=== PATIENT | male | born 1980 | race Caucasian/White ===

== ENCOUNTER 2017-11-27 17:38 | Inpatient (IN) | payer SELFPAY ==
[2017-11-27] MEDS ORDERED: VECURONIUM 10 MG/VIAL IV ONE (17:39)
[2017-11-27] MEDS ORDERED: WATER FOR INJ,STERILE 10 ML PO ONE (17:39)
[2017-11-27] MEDS ORDERED: ETOMIDATE 20 MG/10 ML VIAL IV ONE (17:39)
[2017-11-27] MEDS ORDERED: SUCCINYLCHOLINE 20 MG/ML (10 ML) IV ONE (17:39)
[2017-11-27] MEDS ORDERED: RSI MEDICATION KIT IV ONE (17:50)
[2017-11-27] MEDS ORDERED: PROPOFOL 1,000 MG/100 ML VIAL IV ONE (18:05)
[2017-11-27] MEDS ORDERED: NA CHLORIDE 0.9% 2,000 ML ONE (18:05)
[2017-11-27] MEDS ORDERED: MIDAZOLAM HCL 2 MG/2 ML INJ ONE ×3 (18:15→21:02)
[2017-11-27 18:23] LABS: Absolute Lymphocytes (CBC) 8.3 K/uL (0.7-4.9); Absolute Monocytes 1.7 K/uL (0.1-1.3); Absolute Neutrophil 6.3 K/uL (1.8-8.0); Basophils % 0.4 % (0-1.3); Eosinophils % 1.3 % (0-4.4); Hematocrit 49.3 % (39.6-49.0); MCV 98.9 fL (80-100); MPV 8.1 fL (7.6-11.3); Monocytes % 10.2 % (3.3-12.3); RBC Red Blood Cell Count 4.98 M/uL (4.33-5.43)
[2017-11-27 18:36] LABS: Barbiturates NEGATIVE; Benzodiazepines NEGATIVE; Cocaine NEGATIVE; Opiates NEGATIVE; Phencyclidine NEGATIVE; THC Cannibis POSITIVE
[2017-11-27 18:37] LABS: Arterial Blood Carboxyhemoglob 7.4 % (0-1.5); Blood Gas Oxyhemoglobin 87.4 % (94-97); Blood O2 Saturation 95.5 % (92-98.5)
[2017-11-27 18:40] LABS: METHAMPHETAM POSITIVE
--- NOTE | 2017-11-27 18:40 | RAD REPORT ---
EXAM DESCRIPTION: RAD - Chest Single View - 11/27/2017 6:34 pm CLINICAL HISTORY: Respiratory failure. COMPARISON: None. FINDINGS: Portable technique limits examination quality. Tip of the ET tube is above the belle. The lungs are grossly clear. The heart is normal in size. No displaced fractures.
[2017-11-27] MEDS ORDERED: FENTANYL CITR 100 MCG/2 ML ONE (19:01)
--- NOTE | 2017-11-27 19:12 | ER ---
Nurse's Notes [facility] Name: Jesu Le Age: 37 yrs Sex: Male : 1980 Arrival Date: 11/27/2017 Time: 17:47 Bed 3 Private MD: Diagnosis: Altered mental status, unspecified Presentation: 11/27 17:35 Presenting complaint: EMS states: Pt requested EMS because he was intoxicated. EMS sv arrives, pt was altered and alert to person. Pt reported drinking a fifth of vodka and smoking synthetic marijuana today. EMS stated that pt attempted to hang himself today but denied homicidal ideation. Pt is combative on arrival. [place] [employer] here at bedside to assist. Transition of care: patient was not received from another setting of care. Onset of symptoms was November 27, 2017. Care prior to arrival: None. 17:35 Method Of Arrival: EMS: [facility] sv 17:35 Acuity: MALIK 1 sv Triage Assessment: 17:37 General: Appears distressed, slender, Behavior is combative, uncooperative, Pt sv screaming and yelling at PD.. Smells of alcohol. Pain: Unable to use pain scale. Patient is disoriented. FLACC scale score is 0 out of 10. EENT: No signs and/or symptoms were reported regarding the EENT system. Neuro: Level of Consciousness is awake, alert, confused, Oriented to person, Moves all extremities. Respiratory: Respiratory effort is even, unlabored, Respiratory pattern is regular, symmetrical. GI: No signs and/or symptoms were reported involving the gastrointestinal system. : No signs and/or symptoms were reported regarding the genitourinary system. Derm: Skin is normal. Musculoskeletal: Range of motion: intact in all extremities. Historical: - Allergies: 19:11 No Known Allergies; sv - Home Meds: 19:11 Unable to obtain [Active]; sv - PMHx: 19:11 Unable to obtain; sv - PSHx: 19:11 None; sv - Immunization history:: Adult Immunizations unknown. - Social history:: Smoking status: unknown Patient uses street drugs, Synthetic marijuana. Screenin:25 Abuse screen: unknown. Nutritional screening: unknown. Tuberculosis screening: unknown. sv Fall Risk No fall in past 12 months (0 pts). Secondary diagnosis (15 points) impaired mobility, IV access (20 points). Ambulatory Aid- None/Bed Rest/Nurse Assist (0 pts). Gait- Impaired (20 pts.). Mental Status- Overestimates/Forgets Limitations (15 pts.). Total Delgado Fall Scale indicates High Risk Score (45 or more points). Fall prevention measures have been instituted. Side Rails Up X 2 Frequent Obs/Assessments Occuring. Assessment: 18:00 General: Behavior is agitated, combative, uncooperative. Pain: Unable to use pain sv scale. FLACC scale score is 0 out of 10. Neuro: Level of Consciousness is confused, aggressive. Cardiovascular: Patient's skin is warm and dry. Respiratory: Respiratory effort is even, labored, Pt bucking the vent Respiratory pattern is regular, symmetrical. Derm: Skin is normal. 18:35 Reassessment: Pt agitated, breathing over the vent. See Propofol increase. Pt remains sv intubated. 18:48 Reassessment: Pt agitated, breathing over the vent. Informed Jamari LOZANO. Pt remains sv intubated. 20:09 Reassessment: Pt sedated, VSS. 40 mcg propofol infusing. Awaiting further orders or bed tl2 assignment. 20:47 Reassessment: report given to Ely CAMPOVERDE for ICU bed 1. tl2 Vital Signs: 17:47 BP 201 / 115; Pulse 106; Resp 16; Pulse Ox 100% on BVM; sv 17:52 BP 161 / 97; Pulse 108; Resp 18; Pulse Ox 100% on ETT ambu; sv 18:00 BP 150 / 97; Pulse 114; Resp 14; Pulse Ox 97% on ETT ambu; sv 18:05 BP 144 / 99; Pulse 112; Resp 14; Temp 99(C); Pulse Ox 100% on ETT ambu; sv 18:15 BP 141 / 93; Pulse 107 MON; Resp 14; Temp 98.8(C); Pulse Ox 98% on 35% FiO2 ETT vent; sv 18:30 BP 121 / 80; Pulse 99; Resp 20; Temp 98.1(C); Pulse Ox 100% on 35% FiO2 ETT vent; sv 18:38 BP 138 / 87; Pulse 118; Resp 23; Temp 97.9; Pulse Ox 88% on 35% FiO2 ETT vent; sv 18:44 BP 112 / 75; Pulse 95 MON; Resp 16; Temp 97.9(C); Pulse Ox 100% on 35% FiO2 ETT vent; sv 18:50 Weight 63.5 kg; sv 19:20 BP 98 / 72; Pulse 87; Resp 17; Pulse Ox 100% on 35% FiO2 ETT vent; tl2 20:07 BP 101 / 66; Pulse 88; Resp 17; Temp 97(C); Pulse Ox 99% on 35% FiO2 ETT vent; tl2 21:27 BP 103 / 66; Pulse 88; Resp 17; Pulse Ox 100% on 35% FiO2 ETT vent; tl2 18:15 Sinus tachycardia sv 18:30 Sinus tachycardia sv 18:38 Sinus tachycardia sv 18:44 Sinus Rhythm sv 18:38 Pt started to wake up. Pt being bagged with ambu bag. O2 sat up to 100%. sv Vitals: 20:07 Cardiac Rhythm Assessment Sinus rhythm. tl2 ED Course: 17:42 Inserted saline lock: 20 gauge in left upper arm, using aseptic technique. ,using sv aseptic technique. done by Stacey CAMPOVERDE. 17:45 Assisted provider with intubation using 7.5 mm ETT via oral route. ET tube secured at sv 23cm at the gums. Set up intubation tray. Intubated by Jamari LOZANO Placement verified by CO2 detector w/ + color change, auscultating bilateral breath sounds, Patient tolerated well. 17:47 Patient arrived in ED. ss 17:50 bus driver/monitor on. Pulse ox on. NIBP on. sv 17:52 Initial lab(s) drawn, by il, sent to lab. Inserted saline lock: 18 gauge in right sv forearm, using aseptic technique. Blood collected. Flushed right forearm with 5 ml normal saline. 18:00 Jamari Guerrero PA is PHCP. jr8 18:00 Nisa Aguilar MD is Attending Physician. jr8 18:00 Patient has correct armband on for positive identification. Side rails up X2. sv 18:00 Arm band placed on right wrist. sv 18:05 El cath inserted, using sterile technique, 16 Fr., by meat grader, balloon inflated, to sv gravity drainage, urine specimen collected. other done by Will granger returned clear yellow urine. Criticore el. 18:06 EKG done, by field service tech. reviewed by Jamari LOZANO. at1 18:25 Hanh Lieberman, RN is Primary Nurse. sv 18:32 X-ray completed. Portable x-ray completed in exam room. Patient tolerated procedure ml well. 18:45 Lab(s) recollected, by ED staff, sent to lab. sv 18:55 CPK Sent. sv 18:55 Acetaminophen Sent. sv 18:55 Basic Metabolic Panel Sent. sv 18:56 CBC with Diff Sent. sv 18:56 ETOH Level Sent. sv 18:56 Hepatic Function Sent. sv 18:56 PT-INR Sent. sv 18:56 Ptt, Activated Sent. sv 18:56 Salicylate Sent. sv 18:56 Urine Drug Screen Sent. sv 18:56 Urine Dipstick--Ancillary (enter results) Sent. sv 18:57 ABG Sent. sv 19:07 Report given to Shelbie CAMPOVERDE. sv 19:11 Triage completed. sv 19:11 Nisa Sharma MD is Hospitalizing Provider. ma2 19:39 X-ray completed. Portable x-ray completed in exam room. Patient tolerated procedure ag1 well. 20:05 Primary Nurse role handed off by Hanh Lieberman, GILLES sv 21:25 Sheblie Le, GILLES is Primary Nurse. tl2 21:27 Patient admitted, IV remains in place. tl2 Restraints: 17:45 Violent/Self Destructive Restraint: Order: obtained. Initiated November 27, 2017 at 17:45 sv Staff present during the Initiation of Restraint: Jamari LOZANO, Dr Aguilar. Family Notification/Education: Unable to provide education: Pt combative and screaming.. Observed actions/behavior: destructive, violent, severely aggressive, harming self/others, confusion/disorientation, difficulty remembering or follow instructions, impaired decision making, repeated attempts to get up from bed/chair without assistance. unable to follow instructions, verbally abusive, Less restrictive alternatives attempted: reoriented to location, verbal de-escalation performed, Alternative interventions: Ineffective. Clinical justification for use: Violent/self destructing behavior impacts therapeutic environment. Poses a serious danger to physical safety of self \T\ others. Monitoring: Mental status: agitated/restless, confused. verbally abusive, Cognition: poor judgement, poor safety awareness, Impulsive, poor attention/concentration, unable to follow commands, short term memory loss, Circulation: Within defined parameters (based on Cardiovascular assessment). Skin integrity: Within defined parameters (based on Integumentary assessment) No injuries due to Restraints noted. Range of Motion: Performed. Restraint status: Side rails up x 4 Started. Soft wrist restraint (Right) Started. Soft wrist restraint (Left) Started. Soft ankle restraint (Right) Started. Soft ankle restraint (Left) Started. Readiness for Discontinue: Criteria not met. Patient still violent/self destructive and Alternative interventions still ineffective. Restraint continued. 18:00 Violent/Self Destructive Restraint: Observed actions/behavior: sv confusion/disorientation, difficulty remembering or follow instructions, impaired decision making, decreased Level of Consciousness (LOC), unable to follow instructions, Less restrictive alternatives attempted: placed near Nurse station, Clinical justification for use: Violent/self destructing behavior impacts therapeutic environment. Poses a serious danger to physical safety of self \T\ others. Monitoring: Mental status: patient asleep, Cognition: Unable to assess. unable to follow commands, Circulation: Within defined parameters (based on Cardiovascular assessment). Skin integrity: Within defined parameters (based on Integumentary assessment) No injuries due to Restraints noted. Restraint status: Side rails up x 4 Continued. Soft wrist restraint (Right) Continued. Soft wrist restraint (Left) Continued. Soft ankle restraint (Right) Discontinued. Soft ankle restraint (Left) Discontinued. 18:15 Violent/Self Destructive Restraint: Monitoring: Mental status: patient asleep, sv Cognition: Unable to assess. unable to follow commands, Circulation: Within defined parameters (based on Cardiovascular assessment). Skin integrity: Within defined parameters (based on Integumentary assessment) No injuries due to Restraints noted. Restraint status: Side rails up x 4 Continued. Soft wrist restraint (Right) Continued. Soft wrist restraint (Left) Continued. 18:30 Violent/Self Destructive Restraint: Monitoring: Mental status: patient asleep, sv Cognition: Unable to assess. unable to follow commands, Circulation: Within defined parameters (based on Cardiovascular assessment). Skin integrity: Within defined parameters (based on Integumentary assessment) No injuries due to Restraints noted. Restraint status: Side rails up x 4 Continued. Soft wrist restraint (Right) Continued. Soft wrist restraint (Left) Continued. 18:45 Violent/Self Destructive Restraint: Monitoring: Mental status: patient asleep, sv Cognition: Unable to assess. unable to follow commands, Circulation: Within defined parameters (based on Cardiovascular assessment). Skin integrity: Within defined parameters (based on Integumentary assessment) No injuries due to Restraints noted. Restraint status: Side rails up x 4 Continued. Soft wrist restraint (Right) Continued. Soft wrist restraint (Left) Continued. Administered Medications: 17:43 Drug: Etomidate 20 mg {Note: given by Stacey RIZO} Route: IVP; Site: left upper arm; sv 18:00 Follow up: Response: No adverse reaction sv 17:44 Drug: Succinylcholine 70 mg {Note: given by Stacey RIZO} Route: IVP; Site: left upper sv arm; 18:00 Follow up: Response: No adverse reaction sv 17:55 Drug: Propofol 20 mcg/kg/min Route: IV; Rate: calculated rate; Site: right forearm; sv 18:35 Follow up: Rate change 30 mcg/kg/min sv 18:45 Follow up: Rate change 40 mcg/kg/min sv 21:26 Follow up: IV Status: Infusion continued upon admission tl2 18:00 Drug: VecuroNIUM 10 mg {Note: given by Jamari BECKETT} Route: IVP; Site: left upper arm; sv 18:15 Follow up: Response: No adverse reaction sv 18:00 Drug: Versed 3 mg Route: IVP; Site: left upper arm; sv 18:56 Follow up: Response: No adverse reaction sv 18:03 Drug: NS 0.9% 1000 ml Route: IV; Rate: 1000 ml; Site: right forearm; sv 18:58 Follow up: Response: No adverse reaction; IV Status: Completed infusion; IV Intake: sv 1000ml 18:03 Drug: NS 0.9% 1000 ml Route: IV; Rate: 1000 ml; Site: left antecubital; sv 18:58 Follow up: Response: No adverse reaction; IV Status: Completed infusion; IV Intake: sv 1000ml 18:48 Drug: fentaNYL (PF) 100 mcg Route: IVP; Site: right forearm; sv 18:56 Follow up: Response: No adverse reaction; Marked relief of symptoms sv 19:01 Drug: NS 0.9% 1000 ml Route: IV; Rate: 125 ml/hr; Site: right forearm; sv 21:26 Follow up: IV Status: Infusion continued upon admission tl2 19:30 Drug: Versed 5 mg Route: IVP; Site: left antecubital; ss 19:40 Follow up: Response: No adverse reaction; Patient is sedated tl2 21:00 Drug: Versed 4 mg Route: IVP; Site: left antecubital; tl2 21:10 Follow up: Response: No adverse reaction; Patient is sedated tl2 Intake: 18:58 IV: 1000ml; Total: 1000ml. sv 18:58 IV: 1000ml; Total: 2000ml. sv Ventilator: 18:00 Fi02: 35%; Rate: 16min; T.V.: 410ml; Mode: CMV; sv Outcome: 19:11 Decision to Hospitalize by Provider. ma2 21:27 Admitted to ICU accompanied by nurse, via stretcher, room 1, with oxygen, on monitor, tl2 with chart, Report called to E[place] : critical :27 Discharge instructions given to pt sedated 21:29 Patient left the ED. tl2 Signatures: Hanh Lieberman, RN RN Carla Crowell Shelby, RN RN Jamari Guerrero PA PA jr8 Stacey bhatia, aviation metalsmith EKG Tat1 Loli Bellamy ag1 Shelbie Le RN RN tl2 Nisa Aguilar MD MD ma2 Corrections: (The following items were deleted from the chart) 18:26 18:26 NS 0.9% 1000 ml IV at 1000 ml in right forearm sv sv 18:27 18:00 VecuroNIUM 10 mg IVP in left upper arm sv sv 19:37 17:35 Acuity: MALIK 2 sv sv
--- NOTE | 2017-11-27 19:12 | EDPHYS ---
Physician Documentation [facility] Name: Jesu Le Age: 37 yrs Sex: Male : 1980 Arrival Date: 11/27/2017 Time: 17:47 Bed 3 Private MD: ED Physician Nisa Aguilar HPI: 11/27 18:04 This 37 yrs old Male presents to ER via Unassigned with complaints of Drug jr8 Abuse. 18:04 The patient presents to the emergency department after a known overdose, a result of jr8 recreational substance abuse. Context: Method: the patient has a confirmed or suspected inhalation. Associated signs and symptoms: Pertinent positives: anxiety. Severity of symptoms: At their worst the symptoms were moderate in the emergency department the symptoms are unchanged. It is unknown whether or not the patient has had similar symptoms in the past. It is unknown whether or not the patient has recently seen a physician. Patient via EMS to ED for drug abuse and agitation. Patient upon arrival was stating that he though he smoked "weed". Was fighting police upon arrival. Patient would not answer questions while in exam room. . Historical: - Allergies: 19:11 No Known Allergies; sv - Home Meds: 19:11 Unable to obtain [Active]; sv - PMHx: 19:11 Unable to obtain; sv - PSHx: 19:11 None; sv - Immunization history:: Adult Immunizations unknown. - Social history:: Smoking status: unknown Patient uses street drugs, Synthetic marijuana. ROS: 18:04 Unable to obtain ROS due to patient being uncooperative. jr8 Exam: 18:04 Head/Face: Normocephalic, atraumatic. Eyes: Pupils equal round and reactive to light, jr8 extra-ocular motions intact. Lids and lashes normal. Conjunctiva and sclera are non-icteric and not injected. Cornea within normal limits. Periorbital areas with no swelling, redness, or edema. ENT: Nares patent. No nasal discharge, no septal abnormalities noted. Tympanic membranes are normal and external auditory canals are clear. Oropharynx with no redness, swelling, or masses, exudates, or evidence of obstruction, uvula midline. Mucous membranes moist. Neck: Trachea midline, no thyromegaly or masses palpated, and no cervical lymphadenopathy. Supple, full range of motion without nuchal rigidity, or vertebral point tenderness. No Meningismus. Respiratory: Lungs have equal breath sounds bilaterally, clear to auscultation and percussion. No rales, rhonchi or wheezes noted. No increased work of breathing, no retractions or nasal flaring. Abdomen/GI: Soft, non-tender, with normal bowel sounds. No distension or tympany. No guarding or rebound. No evidence of tenderness throughout. Back: No spinal tenderness. No costovertebral tenderness. Full range of motion. Skin: Warm, dry with normal turgor. Normal color with no rashes, no lesions, and no evidence of cellulitis. MS/ Extremity: Pulses equal, no cyanosis. Neurovascular intact. Full, normal range of motion. 18:04 Cardiovascular: Rate: tachycardic, Rhythm: regular, Pulses: Pulses are 2+ in right radial artery and left radial artery. Heart sounds: normal, normal S1and S2, no S3 or S4, no murmur, no rub, no gallop, Edema: is not appreciated, JVD: is not appreciated. 18:04 Neuro: Orientation: to person, place, Mentation: inappropriate for stated age, Memory: is normal, Cranial nerves: CN I not tested, CN II- XII are normal as tested, visual vázquez are intact. extraocular movements are intact, Facial palsy and sensory deficits are absent. Speech is clear and appropriate. Tongue strength is normal, Motor: moves all fours, strength is normal, Sensation: no obvious gross deficits, seizure activity, is not displayed by the patient, Abnormal movements: there are no abnormal movements. Vital Signs: 17:47 BP 201 / 115; Pulse 106; Resp 16; Pulse Ox 100% on BVM; sv 17:52 BP 161 / 97; Pulse 108; Resp 18; Pulse Ox 100% on ETT ambu; sv 18:00 BP 150 / 97; Pulse 114; Resp 14; Pulse Ox 97% on ETT ambu; sv 18:05 BP 144 / 99; Pulse 112; Resp 14; Temp 99(C); Pulse Ox 100% on ETT ambu; sv 18:15 BP 141 / 93; Pulse 107 MON; Resp 14; Temp 98.8(C); Pulse Ox 98% on 35% FiO2 ETT vent; sv 18:30 BP 121 / 80; Pulse 99; Resp 20; Temp 98.1(C); Pulse Ox 100% on 35% FiO2 ETT vent; sv 18:38 BP 138 / 87; Pulse 118; Resp 23; Temp 97.9; Pulse Ox 88% on 35% FiO2 ETT vent; sv 18:44 BP 112 / 75; Pulse 95 MON; Resp 16; Temp 97.9(C); Pulse Ox 100% on 35% FiO2 ETT vent; sv 18:50 Weight 63.5 kg; sv 19:20 BP 98 / 72; Pulse 87; Resp 17; Pulse Ox 100% on 35% FiO2 ETT vent; tl2 20:07 BP 101 / 66; Pulse 88; Resp 17; Temp 97(C); Pulse Ox 99% on 35% FiO2 ETT vent; tl2 21:27 BP 103 / 66; Pulse 88; Resp 17; Pulse Ox 100% on 35% FiO2 ETT vent; tl2 18:15 Sinus tachycardia sv 18:30 Sinus tachycardia sv 18:38 Sinus tachycardia sv 18:44 Sinus Rhythm sv 18:38 Pt started to wake up. Pt being bagged with ambu bag. O2 sat up to 100%. sv Ventilator: 18:00 Fi02: 35%; Rate: 16min; T.V.: 410ml; Mode: CMV; sv Procedures: 18:15 Intubation: Ventilated with 100% NRB prior to procedure. O2 saturation prior to jr8 procedure was 100 %. Intubated orally using # 4 Silvia blade with 7.5 mm ETT. was successful on first attempt. Ventilated with Ambu bag. Cricoid pressure applied during procedure. Tube secured with ETT valdez measured 23 cm at teeth. Placement verified by CXR, CO2 detector with (+) color change, auscultating bilateral breath sounds, O2 saturation after procedure was 100 %. Patient tolerated well. MDM: 18:00 Patient medically screened. jr8 18:04 Data reviewed: vital signs, nurses notes, lab test result(s), EKG, radiologic studies, jr8 plain films. Data interpreted: Pulse oximetry: on room air is 100 %. Interpretation: normal. Counseling: I had a detailed discussion with the patient and/or guardian regarding: the historical points, exam findings, and any diagnostic results supporting the discharge/admit diagnosis, lab results, radiology results, the need for further work-up and treatment in the hospital. ED course: Patient extremely combative. Tried multiple times to hit and bite employees. Was fighting both employees and police. For the safety of patient and staff, patient was intubated and sedated. . 18:37 Transition of care: After a detail discussion of the patient's case, care is jr8 transferred to Nisa Aguilar MD. 11/27 18:00 Order name: Acetaminophen [facility] 11/27 18:00 Order name: Basic Metabolic Panel [facility] 11/27 18:00 Order name: CBC with Diff [facility] 11/27 18:00 Order name: ETOH Level [facility] 11/27 18:00 Order name: Hepatic Function [facility] 11/27 18:00 Order name: PT-INR [facility] 11/27 18:00 Order name: Ptt, Activated [facility] 11/27 18:00 Order name: Salicylate [facility] 11/27 18:00 Order name: Urine Drug Screen [facility] 11/27 18:01 Order name: CPK [facility] 11/27 18:16 Order name: ABG [facility] 11/27 18:24 Order name: CBC with Automated Diff; Complete Time: 18:30 EDMN 11/27 18:39 Order name: Urine Dipstick--Ancillary (enter results) 11/27 18:40 Order name: ABG Arterial Blood Gas; Complete Time: 19:06 EDMS 11/27 17:52 Order name: CXR XRAY bd 11/27 18:41 Order name: Urine Drug Screen; Complete Time: 19:06 EDMS 11/27 18:43 Order name: RAD; Complete Time: 19:06 EDMS 11/27 19:03 Order name: Chest Single View XRAY 11/27 19:17 Order name: Basic Metabolic Panel EDMS 11/27 19:24 Order name: Liver (Hepatic) Function EDMS 11/27 19:24 Order name: Creatine Phosphokinase EDMS 11/27 19:24 Order name: Acetaminophen Level EDMS 11/27 19:24 Order name: Alcohol Serum/Plasma EDMS 11/27 19:24 Order name: Salicylates Level EDMS 11/27 19:27 Order name: Protime (+INR) EDMS 11/27 19:27 Order name: PTT, Activated Partial Thromb EDMS 11/27 20:01 Order name: RAD EDMS 11/27 20:19 Order name: Urine Dipstick-Ancillary EDMS 11/27 18:00 Order name: EKG; Complete Time: 18:02 [facility] 11/27 18:00 Order name: EKG - Nurse/Tech; Complete Time: 18:55 [facility] 11/27 18:00 Order name: IV Saline Lock; Complete Time: 18:55 [facility] 11/27 18:00 Order name: Labs collected and sent; Complete Time: 18:55 [facility] 11/27 18:00 Order name: Urine Dipstick-Ancillary (obtain specimen); Complete Time: 18:55 [facility] 11/27 18:01 Order name: Koo; Complete Time: 18:55 [facility] 11/27 18:25 Order name: Labs - recollect needed; Complete Time: 18:56 bd Administered Medications: 17:43 Drug: Etomidate 20 mg {Note: given by Stacey RIZO} Route: IVP; Site: left upper arm; sv 18:00 Follow up: Response: No adverse reaction sv 17:44 Drug: Succinylcholine 70 mg {Note: given by Stacey RIZO} Route: IVP; Site: left upper sv arm; 18:00 Follow up: Response: No adverse reaction sv 17:55 Drug: Propofol 20 mcg/kg/min Route: IV; Rate: calculated rate; Site: right forearm; sv 18:35 Follow up: Rate change 30 mcg/kg/min sv 18:45 Follow up: Rate change 40 mcg/kg/min sv 21:26 Follow up: IV Status: Infusion continued upon admission tl2 18:00 Drug: VecuroNIUM 10 mg {Note: given by Jamari BECKETT} Route: IVP; Site: left upper arm; sv 18:15 Follow up: Response: No adverse reaction sv 18:00 Drug: Versed 3 mg Route: IVP; Site: left upper arm; sv 18:56 Follow up: Response: No adverse reaction sv 18:03 Drug: NS 0.9% 1000 ml Route: IV; Rate: 1000 ml; Site: right forearm; sv 18:58 Follow up: Response: No adverse reaction; IV Status: Completed infusion; IV Intake: sv 1000ml 18:03 Drug: NS 0.9% 1000 ml Route: IV; Rate: 1000 ml; Site: left antecubital; sv 18:58 Follow up: Response: No adverse reaction; IV Status: Completed infusion; IV Intake: sv 1000ml 18:48 Drug: fentaNYL (PF) 100 mcg Route: IVP; Site: right forearm; sv 18:56 Follow up: Response: No adverse reaction; Marked relief of symptoms sv 19:01 Drug: NS 0.9% 1000 ml Route: IV; Rate: 125 ml/hr; Site: right forearm; sv 21:26 Follow up: IV Status: Infusion continued upon admission tl2 19:30 Drug: Versed 5 mg Route: IVP; Site: left antecubital; ss 19:40 Follow up: Response: No adverse reaction; Patient is sedated tl2 21:00 Drug: Versed 4 mg Route: IVP; Site: left antecubital; tl2 21:10 Follow up: Response: No adverse reaction; Patient is sedated tl2 Disposition: 18:42 Co-signature as Attending Physician, Nisa Aguilar MD. ma2 Disposition: 11/27/17 19:11 Hospitalization ordered by Nisa Sharma for Inpatient Admission. Preliminary diagnosis is Altered mental status, unspecified. - Bed requested for Intensive Care Unit. - Status is Inpatient Admission. tl2 - Condition is Guarded. - Problem is new. - Symptoms are unchanged. UTI on Admission? No Signatures: Dispatcher [employer] EDMS Jannet Perla Stephanie RN GILLES Diane Fernandez RN RN ss Roszak, Josh, PA PA jr8 Taqueria Reddy PA PA cp Knox, Taylor, RN RN tl2 Nisa Aguilar MD MD ut2
[2017-11-27 19:13] LABS: Protime INR 0.88
[2017-11-27 19:17] LABS: Bicarbonate 23 mEq/L (21-31); Glucose Level 96 mg/dL (65-120); Potassium 3.5 mEq/L (3.6-5.0); Sodium Level 141 mEq/L (135-145)
[2017-11-27 19:23] LABS: ALT/SGPT 25 IU/L (10-60); AST/SGOT 53 IU/L (10-42); Albumin 4.3 g/dL (3.2-5.5); Alcohol Serum/Plasma 316 mg/dl; Alkaline Phosphatase 93 IU/L (42-121); BUN Blood Urea Nitrogen 7 mg/dL (6-20); Bilirubin Direct 0.1 mg/dL (0-0.2); Bilirubin Total 0.5 mg/dL (0.3-1.2); Creatine Phosphokinase 445 IU/L (22-269); Glomerular Filtration Rate > 90 mL/min (=/>90); Protein, Total 7.2 g/dL (6.0-8.3); Salicylates Level < 4.0 mg/dl (<30)
--- NOTE | 2017-11-27 20:00 | RAD REPORT ---
EXAM DESCRIPTION: RAD - Chest Single View - 11/27/2017 7:41 pm CLINICAL HISTORY: Enteric tube placement COMPARISON: None. FINDINGS: Portable technique limits examination quality. The enteric tube tip is in the stomach.
[2017-11-27] MEDS ORDERED: ONDANSETRON 4 MG/2 ML VIAL IV PRN (20:04)
[2017-11-27] MEDS ORDERED: ACETAMINOPHEN 500 MG TAB PO PRN (20:04)
[2017-11-27] MEDS ORDERED: FENTANYL CITR 100 MCG/2 ML IV PRN (20:06)
[2017-11-27 20:19] LABS: Urine Blood TRACE (NEG); Urine Glucose NEGATIVE (NEG); Urine Protein TRACE (NEG); Urine Specific Gravity <1.005 (1.005-1.030)
[2017-11-27] MEDS: NA CHLORIDE 0.9% 1,000 ML IV SCH (21:39)
[2017-11-27] MEDS: PROPOFOL 1,000 MG/100 ML VIAL IV PRN (21:41)
[2017-11-27] MEDS: LORazepam 2 MG/ML VIAL IV PRN ×2 (21:41→23:47)
--- NOTE | 2017-11-27 22:28 | EKG ---
Test Date: 2017-11-27 Test Time: 17:49:10 Superintendent Service: YOANDY MEASUREMENT RESULTS: Intervals: Rate: 103 IA: 194 QRSD: 94 QT: 344 QTc: 450 [place]: P: 84 IA: 194 QRS: 76 T: 84 INTERPRETIVE STATEMENTS: Sinus tachycardia Right atrial enlargement Borderline ECG Compared to ECG 02/01/2015 13:11:04 Atrial abnormality now present Sinus rhythm no longer present Sinus arrhythmia no longer present Electronically Signed On 11-27-17 22:28:12 CDT by Julio C Alvarado
[2017-11-28] MEDS: PROPOFOL 1,000 MG/100 ML VIAL IV PRN ×2 (02:16→07:17)
[2017-11-28] MEDS: LORazepam 2 MG/ML VIAL IV PRN ×3 (02:34→08:47)
[2017-11-28] MEDS ORDERED: HALOPERIDOL LACT 5 MG/ML INJ IV PRN (03:07)
[2017-11-28] MEDS ORDERED: MIDAZOLAM HCL 2 MG/2 ML INJ IV ONE (03:07)
[2017-11-28] MEDS: FENTANYL CITR 100 MCG/2 ML IV PRN ×3 (03:40→08:46)
[2017-11-28 05:10] LABS: Absolute Lymphocytes (CBC) 3.7 K/uL (0.7-4.9); Absolute Monocytes 1.6 K/uL (0.1-1.3); Absolute Neutrophil 10.5 K/uL (1.8-8.0); Basophils % 0.5 % (0-1.3); Eosinophils % 0.9 % (0-4.4); Hematocrit 42.4 % (39.6-49.0); Lymphocytes % 23.3 % (15.3-44.8); MCH 32.6 pg (27.0-35.0); MPV 7.9 fL (7.6-11.3); Monocytes % 9.7 % (3.3-12.3); RBC Red Blood Cell Count 4.33 M/uL (4.33-5.43)
[2017-11-28 05:38] LABS: Arterial Blood Carboxyhemoglob 1.4 % (0-1.5); Blood Gas Oxyhemoglobin 95.9 % (94-97); Blood O2 Saturation 98.2 % (92-98.5)
--- NOTE | 2017-11-28 05:42 | P.HP ---
Certification for Inpatient Patient admitted to: Inpatient With expected LOS: >2 Midnights Patient will require the following post-hospital care: None Practitioner: I am a practitioner with admitting privileges, knowledge of patient current condition, hospital course, and medical plan of care. Services: Services provided to patient in accordance with Admission requirements found in Title 42 Section 412.3 of the Code of Federal Regulations Patient History Date of Service: 11/27/17 Reason for admission: Acute psychosis/airway protection History of Present Illness: Patient is a 37-year-old gentleman who apparently has been abusing synthetic marijuana. Patient came into the hospital and was deliriums. He was not making any sense and was being very combative. It was deemed that patient was a risk to himself and others. Patient continued to get up to an was being combative and concern was that he was going to hurt himself. Patient was given medication for sedation. Patient required intubation for airway protection as well. I was unable to get any information from the patient. The family is not with him. There is no numbers that I was able to locate at this time. Will ask nursing staff to assist in getting patient's information and will try to contact family this evening. Upon reviewing the medical record patient has been seen in the emergency room and has had a drug screen that has been positive for amphetamines, cocaine, & marijuana. At this time, his urine drug screen is positive for amphetamines and marijuana use. Patient's alcohol level was also significantly elevated. Allergies No Known Drug Allergies Allergy (Unverified 02/01/15 16:07) Unknown No Known Allergies Allergy (Uncoded 11/15/17 16:39) Unknown - Past Medical/Surgical History Has patient received pneumonia vaccine in the past: No Diabetic: No Past Medical History: Unable to obtain Past Surgical History: Unable to obtain - Family History Father Family History: Reviewed- Non-Contributory - Social History Smoking Status: Unknown if ever smoked Alcohol use: Yes CD- Drugs: Yes Review of Systems is unable to be obtained Physical Examination - Vital Signs Temperature: 98.9 F Blood Pressure: 101/63 Pulse: 79 Respirations: 16 Pulse Ox (%): 99 - Physical Exam General: Unresponsive, Other (Intubated and sedated) HEENT: Atraumatic, PERRLA, Mucous membr. moist/pink, Other (Intubated and sedated), EOMI, Sclerae nonicteric Neck: Supple, 2+ carotid pulse no bruit, No LAD, Without JVD or thyroid abnormality Respiratory: Clear to auscultation bilaterally, Normal air movement Cardiovascular: Regular rate/rhythm, Normal S1 S2, No murmurs Gastrointestinal: Normal bowel sounds, Soft and benign, Non-distended, No tenderness Musculoskeletal: No clubbing, No swelling, No tenderness Integumentary: No rashes Neurological: Other (Intubated and sedated but moving all extremities and response to pain in all 4 extremities) Lymphatics: No axilla or inguinal lymphadenopathy - Studies Laboratory Data (last 24 hrs) 11/27/17 18:15: PT 10.4, INR 0.88, APTT 26.5 11/27/17 18:15: Sodium 141, Potassium 3.5 L, BUN 7, Creatinine 0.76, Glucose 96 , Total Bilirubin 0.5, AST 53 H, ALT 25, Alkaline Phosphatase 93 11/27/17 17:50: WBC 16.6 H, Hgb 16.4, Hct 49.3 H, Plt Count 349 Assessment & Plan - Problems (Diagnosis) (1) Drug abuse Current Visit: Yes Status: Acute (2) Acute psychosis Current Visit: Yes Status: Acute (3) Airway compromise Current Visit: Yes Status: Acute - Plan Plan: 1. Continue with gentle ventilation 2. Antipsychotics 3. Abuse of synthetic marijuana 4. IV hydration 5. Monitor electrolytes 6. GI and DVT prophylaxis Discharge Plan: Home Plan to discharge in: Greater than 2 days - Advance Directives Does patient have a Living Will: No Does patient have a Durable POA for Healthcare: No - Code Status/Comfort Care Code Status Assessed: Yes Code Status: Full Code Critical Care: No Time Spent Managing PTS Care (In Minutes): 50
[2017-11-28 06:00] LABS: ALT/SGPT 24 IU/L (10-60); AST/SGOT 49 IU/L (10-42); Albumin 3.8 g/dL (3.2-5.5); Alkaline Phosphatase 73 IU/L (42-121); BUN Blood Urea Nitrogen 8 mg/dL (6-20); Bicarbonate 26 mEq/L (21-31); Bilirubin Total 0.5 mg/dL (0.3-1.2); Glomerular Filtration Rate > 90 mL/min (=/>90); Glucose Level 70 mg/dL (65-120); Magnesium 1.8 mg/dL (1.8-2.5); Phosphorus 1.6 mg/dL (2.5-4.3); Potassium 3.9 mEq/L (3.6-5.0); Protein, Total 6.1 g/dL (6.0-8.3); Sodium Level 144 mEq/L (135-145)
[2017-11-28] MEDS: NA CHLORIDE 0.9% 1,000 ML IV SCH (06:23)
[2017-11-28] MEDS ORDERED: MAGNESIUM SULFATE 1 gm IVPB 1 GM/100 ML BAG IV ONE (07:00)
[2017-11-28] MEDS ORDERED: POTASSIUM PHOS IN 0.9 % NACL 15 MMOL/250 ML BAG IV ONE (07:00)
[2017-11-28] MEDS ORDERED: ENOXAPARIN 40 MG/0.4 ML SQ SCH (09:00)
--- NOTE | 2017-11-28 09:05 | RAD REPORT ---
EXAM DESCRIPTION: Eric Single View11/28/2017 6:46 am CLINICAL HISTORY: Shortness of breath COMPARISON: November 27 FINDINGS: The patient was combative. There left lateral lung base is not included on the film. The lungs appear clear of acute infiltrate. The heart is normal size. An endotracheal tube is been inserted to the level of T3. On this exam it cannot be definitively stat ed whether it is in the trachea or esophagus as the feeding tube overlies the trachea. The endotrache al tube lies 6.5 centimeters above the belle. A feeding tube is present within stomach IMPRESSION: Endotracheal tube has its tip 6.5 centimeters above the belle. It should be advanced a few centimeters with a followup chest film obtained
[2017-11-28] MEDS ORDERED: DIAZEPAM 10 MG/2 ML INJ SYRINGE IV ONE (09:15)
--- NOTE | 2017-11-28 19:27 | P.PN ---
Subjective Date of Service: 11/28/17 Chief Complaint: Acute psychosis/airway protection Subjective: Tolerating diet, Improving, Working w/ PT, Doing well Review of Systems 10-point ROS is otherwise unremarkable Physical Examination - Vital Signs Temperature: 99.6 F Blood Pressure: 114/66 Pulse: 99 Respirations: 21 Pulse Ox (%): 96 - Physical Exam General: Alert, In no apparent distress, Oriented x3 HEENT: Atraumatic, PERRLA, EOMI Neck: Supple, JVD not distended Respiratory: Clear to auscultation bilaterally, Normal air movement Cardiovascular: Regular rate/rhythm, Normal S1 S2 Gastrointestinal: Normal bowel sounds, No tenderness Musculoskeletal: No tenderness Integumentary: No rashes Neurological: Normal speech, Normal tone, Normal affect Lymphatics: No axilla or inguinal lymphadenopathy - Studies Laboratory Data (last 24 hrs) 11/27/17 18:15: PT 10.4, INR 0.88, APTT 26.5 Medications List Reviewed: Yes Assessment & Plan - Problems (Diagnosis) (1) Acute psychosis Current Visit: Yes Status: Acute Plan: Most likely 2.2 to drug abuse. -Now extubated and doing well overall -Resolved psychosis. Calm and cooperative (2) Drug abuse Current Visit: Yes Status: Chronic Plan: Educated extensively on drug abuse and abstaining from using drugs. Discharge Plan: Home Plan to discharge in: 24 Hours - Code Status/Comfort Care Code Status Assessed: Yes Critical Care: No
--- NOTE | 2017-11-28 19:52 | P.SSS ---
Patient History Date of Service: 11/28/17 Reason for admission: Acute psychosis/airway protection History of Present Illness: See HPI Allergies No Known Drug Allergies Allergy (Unverified 02/01/15 16:07) Unknown No Known Allergies Allergy (Uncoded 11/15/17 16:39) Unknown Home Medications: NK [No Home Meds] 11/28/17 - Past Medical/Surgical History Has patient received pneumonia vaccine in the past: No Diabetic: No - Social History Smoking Status: Unknown if ever smoked Alcohol use: Yes CD- Drugs: Yes Review of Systems 10-point ROS is otherwise unremarkable Physical Examination - Vital Signs Temperature: 99.6 F Blood Pressure: 114/66 Pulse: 99 Respirations: 21 Pulse Ox (%): 96 - Physical Exam General: Alert, In no apparent distress HEENT: Atraumatic, PERRLA, Mucous membr. moist/pink, EOMI, Sclerae nonicteric Neck: Supple, 2+ carotid pulse no bruit, No LAD, Without JVD or thyroid abnormality Respiratory: Clear to auscultation bilaterally, Normal air movement Cardiovascular: Regular rate/rhythm, Normal S1 S2 Gastrointestinal: Normal bowel sounds, No tenderness Musculoskeletal: No tenderness Integumentary: No rashes Neurological: Normal gait, Normal speech, Normal strength at 5/5 x4 extr, Normal tone, Normal affect Lymphatics: No axilla or inguinal lymphadenopathy - Diagnosis (Problem(s)) (1) Acute psychosis Current Visit: Yes Status: Acute Plan: Most likely 2.2 to drug abuse. -Now extubated and doing well overall -Resolved psychosis. Calm and cooperative (2) Drug abuse Current Visit: Yes Status: Chronic Plan: Educated extensively on drug abuse and abstaining from using drugs. - Disposition Disposition: ROUTINE DISCHARGE Condition: GOOD Patient Discharge Instructions: Please f/u with PCP in 1 to 2 days post discharge. No new medication. Please refrain from using Drugs once you are discharge from hospital. Diet: Regular Activity: Ad lino
--- NOTE | 2017-12-04 10:39 | P.CNS ---
Date of Consult: 11/28/17 Chief Complaint: Acute psychosis/airway protection History of Present Illness: Patient is 37 years of age admitted significant agitation secondary to synthetic marijuana he had to be intubated due to extreme agitation and was started on a propofol drip the time of my evaluation patient was doing well he was on propofol drip well controlled hemodynamically stable no history of suicidal ideation patient was hypercapnic Allergies No Known Drug Allergies Allergy (Verified 11/28/17 20:40) Unknown No Known Allergies Allergy (Uncoded 11/15/17 16:39) Unknown Home Medications: NK [No Home Meds] 11/28/17 - Past Medical/Surgical History Diabetic: No - Family History Father Family History: Reviewed- Non-Contributory - Social History Smoking Status: Unknown if ever smoked Alcohol use: Yes CD- Drugs: Yes Review of Systems is unable to be obtained Physical Examination Temp Pulse Resp BP Pulse Ox 99.6 F 90 18 104/64 96 11/28/17 19:51 11/28/17 20:00 11/28/17 20:00 11/28/17 20:00 11/28/17 20:00 General: Other (On propofol) HEENT: Atraumatic Respiratory: Clear to auscultation bilaterally Cardiovascular: No edema, Normal S1 S2 - Problems (1) Acute psychosis Status: Acute Plan: Patient is 37 years of age admitted with drug abuse significant agitation due to synthetic marijuana use he had to be intubated hypercapnic currently doing well hemodynamically stable chest clear labs all reviewed oxygenation satisfactory vital signs all stable patient can be extubated blood gases satisfactory white count is mildly elevated
== END 2017-11-28 22:35 | disposition home or self-care (01) | DRG 897 ==
LOC: ER 17:38 → ERHOLD 19:33 → 3RD-ICU 20:53
PROVIDERS: ADMIT Hospitalist; ATTEND Family Medicine
PROC: 5A1935Z Respiratory Ventilation, Less than 24 Consecutive Hours (ICD-10-PCS; principal; 2017-11-27)
PROC: 0BH17EZ Insertion of Endotracheal Airway into Trachea, Via Natural or Artificial Opening (ICD-10-PCS; 2017-11-27)
DX: F15.10 Other stimulant abuse, uncomplicated (principal); F23 Brief psychotic disorder; F12.10 Cannabis abuse, uncomplicated; R45.1 Restlessness and agitation
CPT/HCPCS: 31500; 36415; 51702; 71045; 80048; 80053; 80076; 80307; 80320; 80329; 81003; 82550; 82805; 83735; 84100; 85025; 85610; 85730; 93005; 94002; 94003; 99291; 99292; J0330; J1630; J1650; J2250; J3010; J3475; J7030

== ENCOUNTER 2022-04-05 00:40 | Emergency (ER) | payer SELFPAY ==
--- OUTSIDE RECORDS SUMMARY | 2022-04-05 00:42 | XMS REPORT | Continuity of Care Document ---
:1980 Author Organization [facility] t Address [address] [place] [address] Care Team Providers Name Role Phone Unavailable Unavailable Unavailable Payers Payer Name Policy Type Policy Number Effective Date Expiration Date S ource Problems This patient has no known problems. Allergies, Adverse Reactions, Alerts Allergy Allergy Status Severity Reaction(s) Onset Inactive Treating Comm ents Source Name Type Date Date Clinician No Known DA Active U 2017-0 [facility] Allergie 8-30 Clear s 00:00: [place] 00 [facility] Medications This patient has no known medications. Procedures This patient has no known procedures. Results This patient has no known results.
[2022-04-05] MEDS ORDERED: TETANUS & DIPHTHERIA TOX,ADULT 0.5 ML VIAL ONE (02:06)
--- NOTE | 2022-04-05 02:10 | ER ---
Nurse's Notes [facility] Name: Jesu Le Age: 42 yrs Sex: Male : 1980 Arrival Date: 04/05/2022 Time: 00:48 Bed 7 Private MD: Diagnosis: Contaminated finger laceration; Crush injury of finger Presentation: 04/05 01:01 Chief complaint: Patient states: he smashed his left ring finger about 8 hours ago with bb a hammer and it is painful, swollen and deformed. Coronavirus screen: At this time, the client does not indicate any symptoms associated with coronavirus-19. Ebola Screen: No symptoms or risks identified at this time. Initial Sepsis Screen: Does the patient meet any 2 criteria? No. Patient's initial sepsis screen is negative. Does the patient have a suspected source of infection? No. Patient's initial sepsis screen is negative. Risk Assessment: Do you want to hurt yourself or someone else? Patient reports no desire to harm self or others. Onset of symptoms was April 04, 2022. 01:01 Method Of Arrival: Ambulatory 01:01 Acuity: MALIK 4 bb Triage Assessment: 01:14 Injury Description: Deformity sustained to dorsal aspect of distal phalanx of left ring lp1 finger. Historical: - Allergies: 01:04 No Known Allergies; bb - Home Meds: 01:04 None [Active]; bb - PMHx: 01:04 None; bb - PSHx: 01:04 ear tubes; bb - Immunization history:: Client reports having NOT received the Covid vaccine. - Social history:: Smoking status: Patient/guardian denies using tobacco, Stopped _ months ago 6. Screenin:13 Abuse screen: Denies threats or abuse. Denies injuries from another. Nutritional lp1 screening: No deficits noted. Tuberculosis screening: No symptoms or risk factors identified. Fall Risk None identified. Assessment: 01:10 General: Appears uncomfortable, Behavior is appropriate for age. Pain: Complains of lp1 pain in dorsal aspect of distal phalanx of left ring finger Pain currently is 8 out of 10 on a pain scale. Quality of pain is described as throbbing. Neuro: Level of Consciousness is awake, alert, obeys commands. Cardiovascular: Patient's skin is warm and dry. Respiratory: Respiratory effort is even, unlabored. GI: No signs and/or symptoms were reported involving the gastrointestinal system. : No signs and/or symptoms were reported regarding the genitourinary system. EENT: No signs and/or symptoms were reported regarding the EENT system. Derm: Bruising that is dark purple, on dorsal aspect of distal phalanx of left ring finger. Musculoskeletal: Bony deformity noted of dorsal aspect of distal phalanx of left ring finger Reports pain in dorsal aspect of distal phalanx of left ring finger. Vital Signs: 01:01 BP 108 / 70; Pulse 72; Resp 16 S; Temp 98.2(O); Pulse Ox 99% on R/A; Weight 63.5 kg bb (R); Height 5 ft. 11 in. (180.34 cm) (R); Pain 7/10; 01:01 Body Mass Index 19.53 (63.50 kg, 180.34 cm) bb ED Course: 00:48 Patient arrived in ED. ja2 00:59 Estrella Casey MD is Attending Physician. sp3 01:04 Triage completed. bb 01:04 Arm band placed on Patient placed in an exam room, on a stretcher, on pulse oximetry. bb 01:13 Patient has correct armband on for positive identification. lp1 01:13 Wound care: to abrasion, located on dorsal aspect of distal phalanx of left ring finger lp1 was cleaned with Hibiclens. 01:19 XRAY Finger-Thumb Left: Left 4th (ring) finger In Process Unspecified. EDMS 01:58 Agustina Hillman RN is Primary Nurse. lp1 02:09 Koffi Zavaleta MD is Referral Physician. sp3 02:11 No provider procedures requiring assistance completed. Patient did not have IV access lp1 during this emergency room visit. 02:19 Finger splint to left 4th finger. 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 Lot lp1 #: [id number]. } Route: IM; Site: left deltoid; 02:20 Follow up: Response: No adverse reaction lp1 Medication: 02:19 Vaccine Information Statement (VIS) provided today. Questions and/or concerns lp1 addressed. VIS edition date: April 19, 2021. Outcome: 02:10 Discharge ordered by . sp3 02:19 Discharged to home ambulatory. lp1 02:19 Condition: good 02:19 Discharge instructions given to patient, Instructed on discharge instructions, follow up and referral plans. medication usage, Demonstrated understanding of instructions, follow-up care, medications, Prescriptions given X 1. 02:20 Patient left the ED. lp1 Signatures: Dispatcher [employer] EDAimee Hodges RN RN bb Agustina Hillman RN RN lp1 Estrella Casey MD MD sp3 Ann Marie Huang
--- NOTE | 2022-04-05 02:10 | EDPHYS ---
Physician Documentation [facility] Name: Jesu Le Age: 42 yrs Sex: Male : 1980 Arrival Date: 04/05/2022 Time: 00:48 Bed 7 Private MD: ED Physician Estrella Casey HPI: 04/05 01:55 This 42 yrs old Male presents to ER via Ambulatory with complaints of Finger Injury. sp3 01:55 42-year-old male with no significant past medical history presents with left ring sp3 finger dorsal laceration and crush injury at work with swelling that occurred approximately 10 hours ago. States that he tried to "wait it out" but due to the swelling he presents to the ED.. Historical: - Allergies: 01:04 No Known Allergies; bb - Home Meds: 01:04 None [Active]; bb - PMHx: 01:04 None; bb - PSHx: 01:04 ear tubes; bb - Immunization history:: Client reports having NOT received the Covid vaccine. - Social history:: Smoking status: Patient/guardian denies using tobacco, Stopped _ months ago 6. ROS: 02:03 Constitutional: Negative for fever, chills, and weight loss, Cardiovascular: Negative sp3 for chest pain, palpitations, and edema, Respiratory: Negative for shortness of breath, cough, wheezing, and pleuritic chest pain, Skin: Negative for injury, rash, and discoloration, Neuro: Negative for headache, weakness, numbness, tingling, and seizure. 02:03 All other systems are negative. Exam: 02:03 Constitutional: This is a well developed, well nourished patient who is awake, alert, sp3 and in no acute distress. Skin: Warm, dry with normal turgor. Normal color with no rashes, no lesions, and no evidence of cellulitis. 02:03 Musculoskeletal/extremity: Patient with swelling and widened superficial laceration the dorsum distal tip of the left ring finger. X-ray demonstrates possible hairline fracture middle phalanx and the distal end. No obvious fracture noted.. Vital Signs: 01:01 BP 108 / 70; Pulse 72; Resp 16 S; Temp 98.2(O); Pulse Ox 99% on R/A; Weight 63.5 kg bb (R); Height 5 ft. 11 in. (180.34 cm) (R); Pain 03/23; 01:01 Body Mass Index 19.53 (63.50 kg, 180.34 cm) bb MDM: 01:30 Patient medically screened. sp3 02:06 Data reviewed: vital signs, nurses notes. ED course: Patient states he does not want sp3 anything done except tetanus shot. He is not concerned about the laceration. After speaking to him, I did take the antibiotics and follow-up with hand. Discharged with orthopedics follow-up though I have concerns about patient compliance. Aluminum splint and dressing will also be placed. I have explained the potential complexity and potential complications of his injury including possible loss of finger, hand, functional use of his extremity, infection and patient clearly understands the signs.. 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 Lot lp1 #: [id number]. } Route: IM; Site: left deltoid; 02:20 Follow up: Response: No adverse reaction lp1 Disposition Summary: 04/05/22 02:10 Discharge Ordered Location: Home sp3 Condition: Stable sp3 Diagnosis - Contaminated finger laceration; Crush injury of finger sp3 Followup: sp3 - With: Koffi Zavaleta MD - When: Upon discharge from the Emergency Department - Reason: Recheck today's complaints Discharge Instructions: - Discharge Summary Sheet sp3 - Laceration Care, Adult sp3 Forms: - Medication Reconciliation Form sp3 - Thank You Letter sp3 - Antibiotic Education sp3 - Prescription Opioid Use sp3 Prescriptions: - Bactrim DS 800-160 mg Oral Tablet - take 1 tablet by ORAL route every 12 hours for 10 days; 20 tablet; Refills: 0, sp3 Product Selection Permitted Signatures: Dispatcher [employer] EDAimee Hodges RN RN bb Agustina Hillman RN RN lp1 Estrella Casey MD MD sp3
[2022-04-05 03:17] VITALS: BP 108/70; TEMP 98.2; O2SAT 99
--- NOTE | 2022-04-07 11:57 | RAD REPORT ---
EXAM DESCRIPTION: - Finger-Thumb Left - 04/05/2022 1:17 am CLINICAL HISTORY: SMASH INJURY COMPARISON: None. TECHNIQUE: XR FINGERS 04/05/2022 1:03 AM CDT FINDINGS: There is no fracture. Joint spaces are preserved. There is diffuse soft tissue swelling of the left fourth digit. IMPRESSION: No acute osseous findings. Electronically signed by: Aung Teran MD 04/05/2022 4:36 AM CDT Due to temporary technical issues with the PACS/Fluency reporting system, reports are being signed by the in house radiologists without review as a courtesy to insure prompt reporting. The interpreting radiologist is fully responsible for the content of the report.
== END 2022-04-05 02:20 | disposition home or self-care (01) ==
LOC: ER 00:40
DX: S61.012A Laceration without foreign body of left thumb without damage to nail, initial encounter (principal); S67.02XA Crushing injury of left thumb, initial encounter; Z23 Encounter for immunization
CPT/HCPCS: 90471; 90714; 99284

== ENCOUNTER 2022-11-01 01:24 | Emergency (ER) | payer SELFPAY ==
--- OUTSIDE RECORDS SUMMARY | 2022-11-01 01:25 | XMS REPORT | Continuity of Care Document ---
:1980 Author Organization [facility] t Address [address] [place] [address] Care Team Providers Name Role Phone Unavailable Unavailable Unavailable Payers Payer Name Policy Type Policy Number Effective Date Expiration Date S ource Problems This patient has no known problems. Allergies, Adverse Reactions, Alerts Allergy Allergy Status Severity Reaction(s) Onset Inactive Treating Comm ents Source Name Type Date Date Clinician No Known DA Active U 2017-0 [facility] Allergie 8-30 Clear s 00:00: [place] 00 [facility] Medications This patient has no known medications. Procedures This patient has no known procedures. Results This patient has no known results.
--- NOTE | 2022-11-01 02:09 | EDPHYS ---
Physician Documentation [facility] Name: Jesu Le Age: 42 yrs Sex: Male : 1980 Arrival Date: 11/01/2022 Time: 01:26 Bed Waiting Private MD: ED Physician Hanh Jackson HPI: 11/01 02:04 This 42 yrs old Male presents to ER via Ambulatory with complaints of Toothache. cp 02:04 The patient presents with pain. The problem is located in the right lower molar. Onset: cp The symptoms/episode began/occurred 3 day(s) ago. Duration: The symptoms are continuous, and are steadily getting worse. Associated signs and symptoms: Pertinent positives: pain, Pertinent negatives: dysphagia, fever, inability to eat, vomiting. Severity of symptoms: in the emergency department the symptoms are unchanged, despite home interventions. Historical: - Allergies: 02:02 No Known Allergies; bb - Home Meds: 02:02 None [Active]; bb - PMHx: 02:02 None; bb - PSHx: 02:02 ear tubes; bb - Immunization history:: Client reports having NOT received the Covid vaccine. - Social history:: Smoking status: Patient/guardian denies using tobacco, the patient reports quitting approximately 1 years ago. ROS: 02:07 Constitutional: Negative for body aches, chills, fever, poor PO intake. cp 02:07 ENT: Positive for dental pain, ear pain, Negative for drainage from ear(s), sore throat, difficulty swallowing, difficulty handling secretions. 02:07 Respiratory: Negative for cough, shortness of breath, wheezing. Exam: 02:07 Head/Face: Normocephalic, atraumatic. cp 02:07 Constitutional: The patient appears in no acute distress, alert, awake, non-diaphoretic, non-toxic, well developed, well nourished, uncomfortable. 02:07 Eyes: Periorbital structures: appear normal, Conjunctiva: normal, no exudate, no cp injection, Sclera: no appreciated abnormality, Lids and lashes: appear normal, bilaterally. 02:07 ENT: External ear(s): are unremarkable, Ear canal(s): are normal, clear, TM's: cp dullness, bilaterally, Mouth: Lips: moist, Oral mucosa: pink and intact, moist, Posterior pharynx: Airway: no evidence of obstruction, patent, swelling, is not appreciated, erythema, is not appreciated, exudate, is not appreciated, Dental exam: abscess, is not appreciated, dental caries, that is severe, diffusely, pain, that is moderate, specifically in the lower right third molar (#32), Voice: is normal. 02:07 Chest/axilla: Inspection: normal. 02:07 Cardiovascular: Rate: normal, Rhythm: regular. 02:07 Respiratory: the patient does not display signs of respiratory distress, Respirations: normal, no use of accessory muscles, no retractions, labored breathing, is not present, Breath sounds: are clear throughout, no decreased breath sounds, no stridor, no wheezing. 02:07 Abdomen/GI: Inspection: abdomen appears normal. 02:07 Skin: cellulitis, is not appreciated, no rash present. Vital Signs: 02:00 BP 141 / 94; Pulse 88; Resp 16 S; Temp 98.6(O); Pulse Ox 98% on R/A; Weight 65.77 kg bb (R); Height 5 ft. 11 in. (180.34 cm) (R); Pain 10/10; 02:00 Body Mass Index 20.22 (65.77 kg, 180.34 cm) bb MDM: 01:44 Patient medically screened. cp 02:05 Differential diagnosis: dental caries, gingivitis, dental abscess, aphthous ulcers, cp gingivostomatitis. 02:08 Data reviewed: vital signs, nurses notes. cp 02:08 I considered the following discharge prescriptions or medication management in the emergency department Medications were administered in the Emergency Department. See MAR. Test considered but Not performed: CT: facial bones. Care significantly affected by the following chronic conditions: dental disease. Counseling: I had a detailed discussion with the patient and/or guardian regarding: the historical points, exam findings, and any diagnostic results supporting the discharge/admit diagnosis, the need for outpatient follow up, for definitive care, a dentist, to return to the emergency department if symptoms worsen or persist or if there are any questions or concerns that arise at home. Response to treatment: the patient's symptoms have mildly improved after treatment, and as a result, I will discharge patient. Administered Medications: 02:12 Drug: HYDROcodone-acetaminophen 10 mg-325 mg 1 tabs Route: PO; bb 02:12 Follow up: Response: Medication administered at discharge. bb 02:12 Drug: Ibuprofen 800 mg Route: PO; bb 02:12 Follow up: Response: Medication administered at discharge. bb 02:12 Drug: Augmentin (Amoxicillin-Clavulanate) 875 mg Route: PO; bb 02:12 Follow up: Response: Medication administered at discharge. bb Disposition Summary: 11/01/22 02:08 Discharge Ordered Location: Home cp Problem: new cp Symptoms: have improved cp Condition: Stable cp Diagnosis - Disorder of teeth and supporting structures, unspecified cp Followup: cp - With: Mikey Monet DDS - When: 2 - 3 days - Reason: Recheck today's complaints Discharge Instructions: - Discharge Summary Sheet cp - Dental Pain cp Forms: - Medication Reconciliation Form cp - Thank You Letter cp - Antibiotic Education cp - Prescription Opioid Use cp Prescriptions: - Amoxicillin 875 mg Oral Tablet - take 1 tablet by ORAL route every 12 hours for 10 days; 20 tablet; Refills: 0, cp Product Selection Permitted - Diclofenac Sodium 75 mg Oral Tablet Sustained Release - take 1 tablet by ORAL route 2 times per day; 30 tablet; Refills: 0, Product cp Selection Permitted Addendum: 11/02/2022 06:17 I reviewed the patient's care provided by the Advanced Practice Provider and agree with s d2 the diagnosis and treatment plan. Signatures: Aimee Harvey, RN RN bb Taqueria Reddy PA PA cp Dunlop, Stephanie, MD MD sd2
--- NOTE | 2022-11-01 02:09 | ER ---
Nurse's Notes [facility] Name: Jesu Le Age: 42 yrs Sex: Male : 1980 Arrival Date: 11/01/2022 Time: 01:26 Bed Waiting Private MD: Diagnosis: Disorder of teeth and supporting structures, unspecified Presentation: 11/01 02:00 Chief complaint: Patient states: he is having a bad toothache x 2 days with pain bb radiating into his right jaw from a right lower molar. Coronavirus screen: At this time, the client does not indicate any symptoms associated with coronavirus-19. Ebola Screen: No symptoms or risks identified at this time. Initial Sepsis Screen: Does the patient meet any 2 criteria? No. Patient's initial sepsis screen is negative. Does the patient have a suspected source of infection? No. Patient's initial sepsis screen is negative. Risk Assessment: Do you want to hurt yourself or someone else? Patient reports no desire to harm self or others. Onset of symptoms was October 28, 2022. 02:00 Method Of Arrival: Ambulatory 02:00 Acuity: MALIK 5 Triage Assessment: 02:02 General: Appears in no apparent distress. uncomfortable, Behavior is cooperative, bb crying. Pain: Complains of pain in right jaw Pain currently is 10 out of 10 on a pain scale. EENT: Poor dentition noted. Reports pain in right lower jaw. Neuro: Level of Consciousness is awake, alert, obeys commands, Oriented to person, place, time, situation. Cardiovascular: No deficits noted. Respiratory: Respiratory effort is unlabored. GI: No signs and/or symptoms were reported involving the gastrointestinal system. Derm: Skin is pink, warm \T\ dry. Musculoskeletal: Circulation, motion, and sensation intact. Historical: - Allergies: 02:02 No Known Allergies; bb - Home Meds: 02:02 None [Active]; bb - PMHx: 02:02 None; bb - PSHx: 02:02 ear tubes; bb - Immunization history:: Client reports having NOT received the Covid vaccine. - Social history:: Smoking status: Patient/guardian denies using tobacco, the patient reports quitting approximately 1 years ago. Assessment: 02:14 Reassessment: pt verbalized understanding of and agrees to plan of care discharged from triage. Vital Signs: 02:00 BP 141 / 94; Pulse 88; Resp 16 S; Temp 98.6(O); Pulse Ox 98% on R/A; Weight 65.77 kg bb (R); Height 5 ft. 11 in. (180.34 cm) (R); Pain 10/10; 02:00 Body Mass Index 20.22 (65.77 kg, 180.34 cm) ED Course: 01:35 Taqueria Reddy PA is PHCP. cp 01:35 Hanh Jackson MD is Attending Physician. cp 01:50 Alex Lamb, RN is Primary Nurse. ke1 02:02 Triage completed. bb 02:02 Arm band placed on pt seen by Taqueria LOZANO in triage and discharged from triage. bb 02:08 Mikey Monet DDS is Referral Physician. cp 02:14 Patient has correct armband on for positive identification. bb 02:14 No provider procedures requiring assistance completed. Patient did not have IV access bb during this emergency room visit. Administered Medications: 02:12 Drug: HYDROcodone-acetaminophen 10 mg-325 mg 1 tabs Route: PO; bb 02:12 Follow up: Response: Medication administered at discharge. bb 02:12 Drug: Ibuprofen 800 mg Route: PO; bb 02:12 Follow up: Response: Medication administered at discharge. bb 02:12 Drug: Augmentin (Amoxicillin-Clavulanate) 875 mg Route: PO; bb 02:12 Follow up: Response: Medication administered at discharge. bb Medication: 02:15 VIS not applicable for this client. bb Outcome: 02:08 Discharge ordered by MD. cp 02:14 Discharged to home ambulatory. bb 02:14 Condition: stable 02:14 Discharge instructions given to patient, Instructed on discharge instructions, follow up and referral plans. medication usage, Demonstrated understanding of instructions, follow-up care, medications, Prescriptions given X 2. 02:15 Patient left the ED. bb Signatures: Aimee Harvey, RN RN Taqueria Jacobson PA PA cp Thelma Styles [id number] Alex Lamb, RN RN ke1 Corrections: (The following items were deleted from the chart) 01:55 01:26 Patient arrived in ED. [id number] ke1
[2022-11-01] MEDS ORDERED: AMOX/K CLAV 875 MG TAB ONE (02:13)
[2022-11-01] MEDS ORDERED: IBUPROFEN 400 MG TAB ONE (02:14)
[2022-11-01] MEDS ORDERED: HYDROCODONE/APAP 10/325 TAB ONE (02:14)
[2022-11-01 02:58] VITALS: BP 141/94; TEMP 98.6; O2SAT 98
== END 2022-11-01 02:15 | disposition home or self-care (01) ==
LOC: ER 01:24
DX: K08.89 Other specified disorders of teeth and supporting structures (principal)
CPT/HCPCS: 99283

== ENCOUNTER → 2023-11-01 | Emergency (ER) | payer SELFPAY ==
[~2023-11-01] MED LIST: D5 0.9 NS 1,000 ML IV ONE; FOLIC ACID 5 MG/ML VIAL ONE; LORazepam 2 MG/ML VIAL ONE; MORPHINE 2 MG/ML SYR ONE; MULTIVITAMINS 10 ML VIAL (INJ) IV ONE; NA CHLORIDE 0.9% 1,000 ML ONE; ONDANSETRON 4 MG/2 ML VIAL ONE; THIAMINE 200 MG/2 ML INJ ONE
--- OUTSIDE RECORDS SUMMARY | 2023-11-02 00:04 | XMS REPORT | Continuity of Care Document ---
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 Name Role Phone Unavailable Unavailable Unavailable Payers Payer Name Policy Type Policy Number Effective Date Expirati on Date Source Allergies, Adverse Reactions, Alerts Allergy Name Allergy Type Status Severity Reaction(s) Onset Date Inactive Date Treating Clinician Comments Source No Known Allergie s DA Active U 05-13 00:00: 00 [facility] Encounters Start Date/Time End Date/Time Encounter Type Admission Type Attending Clinicians Care Facility Care Department Encounter ID Source 2023-06-15 08:38:27 2023-06-15 08:38:27 Outpatient [facility] [id number] Wes Castellanos
[2023-11-02 00:38] LABS: Hematocrit 43.9 % (39.6-49.0); Lymphocytes % 53.9 % (15.3-44.8); MPV 6.8 fL (7.6-11.3); Platelets 355 thou/uL (152-406); RBC Red Blood Cell Count 4.88 M/uL (4.33-5.43)
[2023-11-02 00:39] LABS: Protime INR 0.91
[2023-11-02 01:05] LABS: Albumin 4.4 g/dL (3.4-5.0); Bilirubin Direct 0.1 mg/dL (0-0.2); Bilirubin Indirect, Calculated 0.2 mg/dL (0.2-0.8); Bilirubin Total 0.3 mg/dL (0.2-1.0); Magnesium 2.4 mg/dL (1.6-2.4); Potassium 3.5 mEq/L (3.5-5.1); Protein, Total 8.2 g/dL (6.4-8.2); Troponin High Sensitivity 4.1 pg/mL (<58.9)
[2023-11-02 01:23] LABS: Blood Morphology Comment NOT SEEN (NOT SEEN); Platelet Estimate ADEQ
[2023-11-02 02:49] LABS: Barbiturates NEGATIVE (NEGATIVE); Benzodiazepines NEGATIVE (NEGATIVE); Cocaine NEGATIVE (NEGATIVE); METHAMPHETAM POSITIVE (NEGATIVE); Methadone NEGATIVE (NEGATIVE); Opiates NEGATIVE (NEGATIVE); Phencyclidine NEGATIVE (NEGATIVE); THC Cannibis POSITIVE (NEGATIVE)
--- NOTE | 2023-11-02 05:39 | ER ---
Nurse's Notes [facility] Name: Jesu Le Age: 43 yrs Sex: Male : 1980 Arrival Date: 11/01/2023 Time: 23:59 Bed 17 Private MD: Diagnosis: Alcohol use, unspecified with intoxication;Anxiety attack, Methamphetamine overdose Presentation: 11/02 00:40 Chief complaint: Spouse and/or significant other states: We were sitting at the bar vc1 having a few drinks and he started sweating and grabbing his chest stating his chest hurt. Coronavirus screen: Client denies travel out of the [place] in the last 14 days. At this time, the client does not indicate any symptoms associated with coronavirus-19. Ebola Screen: Patient negative for fever greater than or equal to 101.5 degrees Fahrenheit, and additional compatible Ebola Virus Disease symptoms Patient denies exposure to infectious person. Patient denies travel to an Ebola-affected area in the 21 days before illness onset. No symptoms or risks identified at this time. 00:40 Method Of Arrival: Wheelchair vc1 00:51 Initial Sepsis Screen: Does the patient meet any 2 criteria? No. Patient's initial vc1 sepsis screen is negative. Does the patient have a suspected source of infection? No. Patient's initial sepsis screen is negative. Risk Assessment: Do you want to hurt yourself or someone else? Patient reports no desire to harm self or others. Onset of symptoms was November 02, 2023. 00:51 Acuity: MALIK 3 vc1 Triage Assessment: 00:44 General: Appears distressed, uncomfortable, slender, Behavior is cooperative, anxious, vc1 Smells of marijuana. Pain: Complains of pain in anterior aspect of left upper chest and left breast Pain does not radiate. Pain currently is 10 out of 10 on a pain scale. Quality of pain is described as radiating, sharp, stabbing, Pain began suddenly, 30 min ago. Is continuous, Noted to be crying, grimacing, guarding, moaning, resistant to movement. EENT: Eyes are tearing on right inner canthus and left inner canthus. Neuro: Level of Consciousness is awake, constricted limbs, grimacing and crying out in pain. Cardiovascular: Reports chest pain, shortness of breath, Chest pain is described as "worst pain of my life", quality is clutching, sharp, is located in left anterior began 30 minutes prior to arrival episodes are continuous. Respiratory: Reports shortness of breath at rest Airway is patent Respiratory effort is even, unlabored, Respiratory pattern is regular, symmetrical, Breath sounds are clear. GI: No deficits noted. No signs and/or symptoms were reported involving the gastrointestinal system. : No deficits noted. No signs and/or symptoms were reported regarding the genitourinary system. Derm: No deficits noted. No signs and/or symptoms reported regarding the dermatologic system. Musculoskeletal: No deficits noted. No signs and/or symptoms reported regarding the musculoskeletal system. Historical: - Allergies: 00:42 No Known Allergies; vc1 - Home Meds: 00:42 None [Active]; vc1 - PMHx: 00:42 None; vc1 - PSHx: 00:42 ear tubes; vc1 - Immunization history:: Flu vaccine status is unknown. - Social history:: Smoking status: Reported history of juuling and/or vaping. Patient uses street drugs, marijuana. - Family history:: not pertinent. Screenin:43 [facility] ED Fall Risk Assessment (Adult) History of falling in the last 3 months, vc1 including since admission No falls in past 3 months (0 pts) Confusion or Disorientation Yes (5 pts) Intoxicated or Sedated Yes (3 pts) Impaired Gait Yes (1 pt) Mobility Assist Device Used No (0 pt) Altered Elimination No (0 pt) Score/Fall Risk Level 0 - 2 = Low Risk Oriented to surroundings, Maintained a safe environment, Educated pt \\T\\ family on fall prevention, incl call for assistance when getting out of bed. Abuse screen: Denies threats or abuse. Nutritional screening: No deficits noted. Tuberculosis screening: No symptoms or risk factors identified. Assessment: 02:54 Reassessment: No changes from previously documented assessment. Patient and/or family vc1 updated on plan of care and expected duration. Pain level reassessed. General: Appears in no apparent distress. comfortable, Behavior is quiet. 04:12 Reassessment: Patient appears in no apparent distress at this time. Patient and/or pf1 family updated on plan of care and expected duration. Pain level reassessed. Patient pending discharge. 04:45 General: Waiting for patient to wake up more and significant other to arrive to take vc1 him home. Vital Signs: 00:51 BP 130 / 77; Pulse 75; Resp 20; Pulse Ox 100% ; vc1 02:51 BP 104 / 76; Pulse 75; Resp 14; Temp 98; Pulse Ox 100% ; vc1 04:00 BP 102 / 69; Pulse 69; Resp 18; Pulse Ox 100% on R/A; pf1 ED Course: 00:08 Patient arrived in ED. jj6 00:10 Initial lab(s) drawn, by me, sent to lab. Inserted saline lock: 18 gauge in left jb4 antecubital area, using aseptic technique. Blood collected. 00:11 Jason Gayle MD is Attending Physician. sp4 00:30 Patient has correct armband on for positive identification. Bed in low position. Call vc1 light in reach. Side rails up X2. Adult w/ patient. Client placed on continuous cardiac and pulse oximetry monitoring. NIBP monitoring applied. 00:32 XRAY Chest (1 view) In Process Unspecified. EDMS 00:43 Arm band placed on right wrist. vc1 00:52 Triage completed. vc1 01:48 Urine Drug Screen Sent. pm6 05:48 No provider procedures requiring assistance completed. IV discontinued, intact, vc1 bleeding controlled, No redness/swelling at site. Pressure dressing applied. 05:49 Provided Education on: Avoid recreational drugs. vc1 Administered Medications: 00:19 Drug: Ativan IVP 2 mg IVP once Route: IVP; Site: left antecubital; jb4 02:55 Follow up: Response: No adverse reaction; Marked relief of symptoms vc1 00:38 Drug: Banana Bag - (Multivitamin IV 1 amp, NS 0.9% IV 1000 ml, Thiamine IV 100 mg, vc1 foLIC Acid IVPB 1 mg) IV at calculated rate once Route: IV; Rate: calculated rate; Site: left antecubital; 00:48 Follow up: IV Status: Completed infusion; IV Intake: 1000ml vc1 00:39 Drug: morphine IVP or IV 2 mg IVP once over 4 mins Route: IVP; Infused Over: 4 mins; vc1 Site: left antecubital; 02:55 Follow up: Response: No adverse reaction; Marked relief of symptoms vc1 00:39 Drug: Ondansetron IVP 4 mg IVP once; over 2 minutes Route: IVP; Site: left antecubital; vc1 02:56 Follow up: Response: No adverse reaction; Marked relief of symptoms vc1 01:52 Drug: D5-NS IV 1000 ml IV at 250 ml/hr continuous Route: IV; Rate: 250 ml/hr; Site: vc1 left antecubital; 02:50 Follow up: Response: No adverse reaction; Marked relief of symptoms pf1 Medication: 00:52 VIS not applicable for this client. vc1 Intake: 00:48 IV: 1000ml; Total: 1000ml. vc1 Outcome: 05:39 Discharge ordered by . sp4 05:48 Discharged to home ambulatory, with significant other, vc1 05:48 Condition: good 05:48 Discharge instructions given to patient, significant other, Instructed on discharge instructions, follow up and referral plans. Demonstrated understanding of instructions, follow-up care, 05:50 Patient left the ED. vc1 Signatures: Dispatcher [employer] EDMS Filippo Figueredo RN RN jb4 Thelma Styles jj6 Henny Mcdaniel RN RN vc1 Clari Garces RN RN pf1 Jason Gayle MD MD sp4 Teressa Pena pm6
--- NOTE | 2023-11-02 05:39 | EDPHYS ---
Physician Documentation [facility] Name: Jesu Le Age: 43 yrs Sex: Male : 1980 Arrival Date: 11/01/2023 Time: 23:59 Bed 17 Private MD: ED Physician Jason Gayle HPI: 11/02 00:11 This 43 yrs old Male presents to ER via Unassigned with complaints of alcohol sp4 intoxication and chest pain . 03:27 43-year-old male brought from the local bar, we will continue to chest pain and sp4 anxiety. Patient's family stated he was just having a few drinks when he became diaphoretic and grabbed his chest and complained of chest pain. On presentation patient is having acute panic attack with tremors and difficulty speaking. Patient is poorly cooperative. . Historical: - Allergies: 00:42 No Known Allergies; vc1 - Home Meds: 00:42 None [Active]; vc1 - PMHx: 00:42 None; vc1 - PSHx: 00:42 ear tubes; vc1 - Immunization history:: Flu vaccine status is unknown. - Social history:: Smoking status: Reported history of juuling and/or vaping. Patient uses street drugs, marijuana. - Family history:: not pertinent. ROS: 03:27 Constitutional: Positive for chest pain and anxiety sp4 03:27 All other systems are negative, 03:29 Constitutional: Negative for fever, chills, and weight loss, positive for chest sp4 pain, positive for anxiety 03:29 Constitutional: Positive for Exam: 01:54 ECG was reviewed by the Attending Physician. 00:13 Normal EKG at 73 bpm sp4 03:27 Constitutional: This is a well developed, well nourished patient who is awake, alert, sp4 acutely anxious male, poorly cooperative, thin appearing male Head/Face: Normocephalic, atraumatic. Eyes: Pupils equal round and reactive to light, extra-ocular motions intact. Lids and lashes normal. Conjunctiva and sclera are not injected. Cornea within normal limits. Periorbital areas with no swelling, redness, or edema. ENT: Nares patent. No nasal discharge, no septal abnormalities noted. Tympanic membranes are normal and external auditory canals are clear. Oropharynx with no redness, swelling, or masses, exudates, or evidence of obstruction, uvula midline. Mucous membranes moist. Neck: Trachea midline, no thyromegaly or masses palpated, and no cervical lymphadenopathy. Supple, full range of motion without nuchal rigidity, or vertebral point tenderness. Chest/axilla: Normal chest wall appearance and motion. Nontender with no deformity. No lesions are appreciated. Cardiovascular: Regular rate and rhythm with a normal S1 and S2. No gallops, murmurs, or rubs. Normal PMI, no JVD. No pulse deficits. Respiratory: Lungs have equal breath sounds bilaterally, clear to auscultation and percussion. No rales, rhonchi or wheezes noted. No increased work of breathing, no retractions or nasal flaring. Abdomen/GI: Soft, with normal bowel sounds. No distension or tympany. No guarding or rebound. No evidence of tenderness throughout. Back: No spinal tenderness. No costovertebral tenderness. Skin: Warm, dry with normal turgor. Normal color with no rashes, no lesions, and no evidence of cellulitis. MS/ Extremity: Pulses equal, no cyanosis. Neurovascular intact. Full, normal range of motion. Neuro: Awake and alert, GCS 15, oriented to person, place, time, and situation. Cranial nerves II-XII grossly intact. Motor strength 5/5 in all extremities. Sensory grossly intact. Vital Signs: 00:51 BP 130 / 77; Pulse 75; Resp 20; Pulse Ox 100% ; vc1 02:51 BP 104 / 76; Pulse 75; Resp 14; Temp 98; Pulse Ox 100% ; vc1 04:00 BP 102 / 69; Pulse 69; Resp 18; Pulse Ox 100% on R/A; pf1 MDM: 00:13 Patient medically screened. sp4 03:30 Differential Diagnosis altered mental status, sepsis, flu, Intoxication, drug overdose sp4 . Data reviewed: vital signs, nurses notes, old medical records, lab test result(s), EKG, radiologic studies, plain films. Consideration of Admission/Observation Escalation of care including admission/observation considered. ED course: EXAM DESCRIPTION: Chest Single View 11/02/2023 12:54 AM ELECTRONIC SPECIALIST CLINICAL HISTORY: 43 years, Male, CHEST PAIN COMPARISON: None FINDINGS: 1 views of the chest was obtained. Prior films were compared. There is normal lung volume. Mediastinum: The cardiomediastinal silhouette appears normal in size and shape. Lungs: No areas of consolidations or masses are identified. Heart: The heart is normal in size. Aorta: The thoracic aorta demonstrate to be within normal limits. Pulmonary vasculature: The pulmonary vasculature is normal in distribution. Pleura: The costophrenic angles demonstrate to be sharp. Osseous structures: The bony structures demonstrate to be within normal limits. Other: None. IMPRESSION: No acute cardiopulmonary disease is seen. ED course: Patient is positive for methamphetamines, marijuana, alcohol.. We suspect acute panic attacks associated with chest pain is secondary to methamphetamine use. Patient is feeling improved after some Ativan IV. Will advised to discontinue methamphetamine use, will advise to discontinue alcohol and drug use, patient is currently resting and we will reassess patient at 6 AM. . 05:40 ED course: Patient woke up and is feeling improved. Stable for discharge home. We have sp4 advised patient to stay away from recreational drugs and alcohol. . 11/02 00:12 Order name: Basic Metabolic Panel; Complete Time: :45 sp4 11/02 00:12 Order name: CBC with Diff; Complete Time: :45 sp4 11/02 00:12 Order name: LFT's; Complete Time: :45 4 11/02 00:12 Order name: Magnesium; Complete Time: :45 sp4 11/02 00:12 Order name: NT PRO-BNP; Complete Time: :45 sp4 11/02 00:12 Order name: PT-INR; Complete Time: :45 4 11/02 00:12 Order name: Troponin HS; Complete Time: :45 sp4 11/02 00:12 Order name: Urine Drug Screen; Complete Time: 03: sp4 11/02 00:13 Order name: Alcohol Level; Complete Time: :45 sp4 11/02 00:44 Order name: Manual Differential; Complete Time: :45 EDMS 11/02 00:12 Order name: XRAY Chest (1 view) 4 11/02 00:12 Order name: EKG; Complete Time: 00:12 sp4 11/02 00:12 Order name: Cardiac monitoring; Complete Time: 00:19 sp4 11/02 00:12 Order name: EKG - Nurse/Tech; Complete Time: 00:15 sp4 11/02 00:12 Order name: IV Saline Lock; Complete Time: sp4 11/02 00:12 Order name: Labs collected and sent; Complete Time: sp4 11/02 00:12 Order name: O2 Per Protocol; Complete Time: sp4 11/02 00:12 Order name: O2 Sat Monitoring; Complete Time: sp4 EC:54 Rate is 73 beats/min. Rhythm is regular, Normal Sinus Rhythm. QRS [place] is Normal. IN sp4 interval is normal. QRS interval is normal. QT interval is normal. No Q waves. T waves are Normal. No ST changes noted. Clinical impression: Normal ECG. Interpreted by me. Reviewed by me. Administered Medications: 00:19 Drug: Ativan IVP 2 mg IVP once Route: IVP; Site: left antecubital; jb4 02:55 Follow up: Response: No adverse reaction; Marked relief of symptoms vc1 00:38 Drug: Banana Bag - (Multivitamin IV 1 amp, NS 0.9% IV 1000 ml, Thiamine IV 100 mg, vc1 foLIC Acid IVPB 1 mg) IV at calculated rate once Route: IV; Rate: calculated rate; Site: left antecubital; 00:48 Follow up: IV Status: Completed infusion; IV Intake: 1000ml vc1 00:39 Drug: morphine IVP or IV 2 mg IVP once over 4 mins Route: IVP; Infused Over: 4 mins; vc1 Site: left antecubital; 02:55 Follow up: Response: No adverse reaction; Marked relief of symptoms vc1 00:39 Drug: Ondansetron IVP 4 mg IVP once; over 2 minutes Route: IVP; Site: left antecubital; vc1 02:56 Follow up: Response: No adverse reaction; Marked relief of symptoms vc1 01:52 Drug: D5-NS IV 1000 ml IV at 250 ml/hr continuous Route: IV; Rate: 250 ml/hr; Site: vc1 left antecubital; 02:50 Follow up: Response: No adverse reaction; Marked relief of symptoms pf1 Disposition Summary: 11/02/23 05:39 Discharge Ordered Problem: new sp4 Symptoms: have improved sp4 Condition: Stable sp4 Diagnosis - Alcohol use, unspecified with intoxication sp4 - Anxiety attack, Methamphetamine overdose sp4 Followup: sp4 - With: Private Physician - When: 7 - 10 days - Reason: Recheck today's complaints Discharge Instructions: - Discharge Summary Sheet sp4 - Methamphetamines Use Disorder sp4 Forms: - Patient Portal Instructions sp4 Signatures: Dispatcher [employer] Filippo Edmonds RN RN jb4 Henny Mcdaniel RN RN vc1 Jason Gayle MD MD sp4 Clari Garces RN pf1 Corrections: (The following items were deleted from the chart) 03:30 03:27 Constitutional: Negative for fever, chills, and weight loss, sp4 sp4
[2023-11-02 06:10] VITALS: BP 104/76; O2SAT 100
[2023-11-02 06:31] VITALS: TEMP 99.6
--- NOTE | 2023-11-02 10:54 | EKG ---
Test Date: 2023-11-02 Test Time: 00:13:43 Loan Specialist: OEBD MEASUREMENT RESULTS: Intervals: Rate: 73 WI: 152 QRSD: 88 QT: 386 QTc: 425 [place]: P: 82 WI: 152 QRS: 79 T: 76 INTERPRETIVE STATEMENTS: Normal sinus rhythm Normal ECG Compared to ECG 11/27/2017 17:49:10 Sinus tachycardia no longer present Atrial abnormality no longer present Electronically Signed On 11-02-23 10:54:19 RECREATION SUPERVISOR by Hakeem Kumar
--- NOTE | 2023-11-02 13:00 | RAD REPORT ---
EXAM DESCRIPTION: RAD - Chest Single View - 11/02/2023 12:31 am CLINICAL HISTORY: 43 years, Male, CHEST PAIN COMPARISON: None FINDINGS: 1 views of the chest was obtained. Prior films were compared. There is normal lung volum e. Mediastinum: The cardiomediastinal silhouette appears normal in size and shape. Lungs: No areas of consolidations or masses are identified. Heart: The heart is normal in size. Aorta: The thoracic aorta demonstrate to be within normal limits. Pulmonary vasculature: The pulmonary vasculature is normal in distribution. Pleura: The costophrenic angles demonstrate to be sharp. Osseous structures: The bony structures demonstrate to be within normal limits. Other: None. IMPRESSION: No acute cardiopulmonary disease is seen Electronically signed by: Will Lombardi MD 11/02/2023 12:54 AM POWERHOUSE MECHANIC Due to temporary technical issues with the PACS/Fluency reporting system, reports are being signed by the in house radiologist without review as a courtesy to ensure prompt reporting. The interpreting r adiologist is fully responsible for the content of the report.
== END ==
LOC: ER 23:59
DX: F10.929 Alcohol use, unspecified with intoxication, unspecified (principal); F41.0 Panic disorder [episodic paroxysmal anxiety]; T43.621A Poisoning by amphetamines, accidental (unintentional), initial encounter
CPT/HCPCS: 71045; 93005

== ENCOUNTER 2024-01-02 15:35 | Emergency (ER) | payer OTHER, SELFPAY ==
--- OUTSIDE RECORDS SUMMARY | 2024-01-02 15:39 | XMS REPORT | Continuity of Care Document ---
Author Name Unknown Address [address] [facility] [address] [place] [address] [facility] thconnect Address [address] [address] [address] [place] [address] Care Team Providers Care Act English Tutor Name Role Phone Unavailable Unavailable Unavailable Payers Payer Name Policy Type Policy Number Effective Date Expirati on Date Source Allergies, Adverse Reactions, Alerts Allergy Name Allergy Type Status Severity Reaction(s) Onset Date Inactive Date Treating Clinician Comments Source No Known Allergie s DA Active U 05-13 00:00: 00 [facility] Encounters Start Date/Time End Date/Time Encounter Type Admission Type Attending Clinicians Care Facility Care Department Encounter ID Source 2023-06-15 08:38:27 2023-06-15 08:38:27 Outpatient [facility] [id number] Wes Castellanos
[2024-01-02] MEDS ORDERED: NA CHLORIDE 0.9% 2,000 ML ONE (16:02)
[2024-01-02 16:29] LABS: Absolute Basophils 0.1 K/uL (0-0.5); Absolute Eosinophils 0.2 K/uL (0-0.5); Absolute Monocytes 0.9 K/uL (0.1-1.3); Basophils % 0.7 % (0-1.3); Eosinophils % 1.7 % (0-4.4); Hematocrit 41.6 % (39.6-49.0); Hemoglobin 14.1 g/dL (13.6-17.9); Lymphocytes % 33.4 % (15.3-44.8); MCH 30.4 pg (27.0-35.0); MCV 89.5 fL (80-100); MPV 6.9 fL (7.6-11.3); Monocytes % 9.4 % (3.3-12.3); Neutrophils % 54.8 % (41.7-73.7); Nucleated Red Blood Cells % 0.4 % (0-0); Platelets 319 thou/uL (152-406); RBC Red Blood Cell Count 4.65 M/uL (4.33-5.43); Red Cell Distribution Width 12.6 % (12.1-15.2)
[2024-01-02 16:49] LABS: Albumin 4.4 g/dL (3.4-5.0); Albumin/Globulin Ratio 1.3 (1.1-1.8); Anion Gap 8.6 mEq/L (5.0-15.0); Bilirubin Direct 0.1 mg/dL (0-0.2); Bilirubin Indirect, Calculated 0.3 mg/dL (0.2-0.8); Bilirubin Total 0.4 mg/dL (0.2-1.0); Globulin 3.5 g/dL (2.3-3.5); Magnesium 2.2 mg/dL (1.6-2.4); Potassium 3.6 mEq/L (3.5-5.1); Protein, Total 7.9 g/dL (6.4-8.2); Troponin High Sensitivity 3.9 pg/mL (<58.9)
--- NOTE | 2024-01-02 18:07 | ER ---
Nurse's Notes [facility] Name: Jesu Le Age: 43 yrs Sex: Male : 1980 Arrival Date: 01/02/2024 Time: 15:35 Bed 8 Private MD: Diagnosis: Syncope;Dehydration Presentation: 01/01 15:44 Chief complaint: Patient states: I guess I over did it, I'v been cutting grass all day, iw not drinking enough water, all i know is I woke up and there was a bunch of people around me, now my right ear drum feels popped. Coronavirus screen: At this time, the client does not indicate any symptoms associated with coronavirus-19. Ebola Screen: Patient negative for fever greater than or equal to 101.5 degrees Fahrenheit, and additional compatible Ebola Virus Disease symptoms Patient denies exposure to infectious person. Patient denies travel to an Ebola-affected area in the 21 days before illness onset. No symptoms or risks identified at this time. Initial Sepsis Screen: Does the patient meet any 2 criteria? No. Patient's initial sepsis screen is negative. Does the patient have a suspected source of infection?. Risk Assessment: Do you want to hurt yourself or someone else? Patient reports no desire to harm self or others. Onset of symptoms was January 02, 2024. 15:44 Method Of Arrival: Wheelchair iw 15:44 Acuity: MALIK 3 iw Triage Assessment: 15:45 General: Appears in no apparent distress. unkempt, Behavior is calm, cooperative, bp appropriate for age. Pain: Denies pain. Historical: - Allergies: 15:45 No Known Allergies; iw - Home Meds: 15:45 None [Active]; iw - PMHx: 15:45 None; iw - PSHx: 15:45 ear tubes; iw - Immunization history:: Adult Immunizations not up to date. - Infectious Disease History:: Denies. - Social history:: Smoking status: Reported history of juuling and/or vaping. - Family history:: not pertinent. Screenin:18 [facility] ED Fall Risk Assessment (Adult) History of falling in the last 3 months, ph including since admission Yes- physiologic fall (2 pts) Confusion or Disorientation No (0 pts) Intoxicated or Sedated No (0 pts) Impaired Gait No (0 pts) Mobility Assist Device Used No (0 pt) Altered Elimination No (0 pt) Score/Fall Risk Level 0 - 2 = Low Risk Oriented to surroundings, Maintained a safe environment, Hourly rounding (assess needs \\T\\ fall precautionary measures) done. Abuse screen: Denies threats or abuse. Denies injuries from another. Nutritional screening: No deficits noted. Tuberculosis screening: No symptoms or risk factors identified. Assessment: 16:15 Reassessment: IV to RAC, good blood return and flushes easily, pt requested that IV be ph removed, states, " That's uncomfortable, I don't want it. Take it out" IV d/c per pt request. General: Appears in no apparent distress. Behavior is cooperative. Pain: Denies pain. Neuro: Level of Consciousness is awake, alert, obeys commands, Oriented to person, place, time, situation. Cardiovascular: Capillary refill < 3 seconds in bilateral fingers Patient's skin is warm and dry. Derm: Skin is pink, warm \\T\\ dry. 17:03 Reassessment: Patient appears in no apparent distress at this time. Patient is alert, bp oriented x 3, equal unlabored respirations, skin warm/dry/pink. Vital Signs: 15:44 BP 119 / 78; Pulse 88; Resp 16; Temp 98.7; Pulse Ox 100% on R/A; Weight 61.23 kg; iw Height 5 ft. 11 in. ; 17:03 BP 108 / 80; Pulse 62; Resp 16; Pulse Ox 100% ; bp 15:44 Body Mass Index 18.83 (61.23 kg, 180.34 cm) iw ED Course: 15:38 Patient arrived in ED. mr 15:39 Yobany Palma MD is Attending Physician. rt 15:45 Triage completed. iw 15:45 Arm band placed on. iw 15:50 Kwadwo Scales, RN is Primary Nurse. bp 16:15 Initial lab(s) drawn, by me, sent to lab. EKG done, by ED staff, reviewed by Yobany Palma MD. Missed attempt(s): 20 gauge in right forearm. Bleeding controlled, band aid applied, catheter tip intact. Inserted saline lock: 20 gauge in right antecubital area, using aseptic technique. Blood collected. 16:18 Patient has correct armband on for positive identification. Bed in low position. Call ph light in reach. Door closed. Noise minimized. 16:34 Basic Metabolic Panel Sent. bp 16:34 CBC with Diff Sent. bp 16:34 LFT's Sent. bp 16:34 Magnesium Sent. bp 16:34 Troponin HS Sent. bp 16:34 CPK Sent. bp Administered Medications: 16:34 Not Given (Patient Refused): ns 0.9% 2000 ml IV at 2 bolus Per protocol; 1000 mL bolus bp Medication: 16:18 VIS not applicable for this client. ph Outcome: 18:06 Discharge ordered by . rt 18:21 Patient left the ED. em1 Signatures: Thi Schaefer, Reg Reg mr Alejandra Farnsworth, RN Krzysztof Fink em1 Ernestine Latham, GILLES RN Kwadwo Thorne, GILLES RN Yobany Conteh MD MD rt
--- NOTE | 2024-01-02 18:07 | EDPHYS ---
Physician Documentation [facility] Name: Jesu Le Age: 43 yrs Sex: Male : 1980 Arrival Date: 01/02/2024 Time: 15:35 Bed 8 Private MD: ED Physician Yobany Palma HPI: 01/01 17:19 This 43 yrs old Male presents to ER via Wheelchair with complaints of Heat Exposure, rt Confusion. 17:19 Patient presents to the ED with reported syncope. Patient was working outside in the rt heat all day, states that he has not kept up with his fluids, was sweating quite a bit. Did not lose consciousness. Had return of consciousness. Reports mild lightheadedness currently but denies any other acute complaints, symptoms are moderate in severity, no other aggravating or alleviating factors.. Historical: - Allergies: 15:45 No Known Allergies; iw - Home Meds: 15:45 None [Active]; iw - PMHx: 15:45 None; iw - PSHx: 15:45 ear tubes; iw - Immunization history:: Adult Immunizations not up to date. - Infectious Disease History:: Denies. - Social history:: Smoking status: Reported history of juuling and/or vaping. - Family history:: not pertinent. ROS: 17:19 Constitutional: Negative for fever, chills, and weight loss, Cardiovascular: Negative rt for chest pain, palpitations, and edema, Respiratory: Negative for shortness of breath, cough, wheezing, and pleuritic chest pain, Abdomen/GI: Negative for abdominal pain, nausea, vomiting, diarrhea, and constipation, Skin: Negative for injury, rash, and discoloration, Psych: Negative for depression, anxiety, suicide ideation, homicidal ideation, and hallucinations, 17:19 Neuro: Positive for syncope, Negative for altered mental status, Exam: 17:19 Constitutional: This is a well developed, well nourished patient who is awake, alert, rt and in no acute distress. Head/Face: Normocephalic, atraumatic. Chest/axilla: Normal chest wall appearance and motion. Nontender with no deformity. No lesions are appreciated. Cardiovascular: Regular rate and rhythm with a normal S1 and S2. No gallops, murmurs, or rubs. Normal PMI, no JVD. No pulse deficits. Respiratory: Lungs have equal breath sounds bilaterally, clear to auscultation and percussion. No rales, rhonchi or wheezes noted. No increased work of breathing, no retractions or nasal flaring. Abdomen/GI: Soft, non-tender, with normal bowel sounds. No distension or tympany. No guarding or rebound. No evidence of tenderness throughout. Skin: Warm, dry with normal turgor. Normal color with no rashes, no lesions, and no evidence of cellulitis. MS/ Extremity: Pulses equal, no cyanosis. Neurovascular intact. Full, normal range of motion. Neuro: Awake and alert, GCS 15, oriented to person, place, time, and situation. Cranial nerves II-XII grossly intact. Motor strength 5/5 in all extremities. Sensory grossly intact. Cerebellar exam normal. Normal gait. 17:19 ENT: Dry mucous membranes. 17:19 ECG was reviewed by the Attending Physician. Vital Signs: 15:44 BP 119 / 78; Pulse 88; Resp 16; Temp 98.7; Pulse Ox 100% on R/A; Weight 61.23 kg; iw Height 5 ft. 11 in. ; 17:03 BP 108 / 80; Pulse 62; Resp 16; Pulse Ox 100% ; bp 15:44 Body Mass Index 18.83 (61.23 kg, 180.34 cm) iw MDM: 15:52 Patient medically screened. rt 18:33 Differential Diagnosis Dehydration, syncope, rhabdomyolysis, acute renal failure. Data rt reviewed: vital signs, nurses notes, lab test result(s), EKG. Consideration of Admission/Observation Escalation of care including admission/observation considered. I considered the following discharge prescriptions or medication management in the emergency department Medications were administered in the Emergency Department. See MAR. Test considered but Not performed: CT: No signs of head trauma, CT scan of the head not indicated. Counseling: I had a detailed discussion with the patient and/or guardian regarding the historical points, exam findings, and any diagnostic results supporting the discharge/admit diagnosis, lab results, the need for outpatient follow up, to return to the emergency department if symptoms worsen or persist or if there are any questions or concerns that arise at home. Response to treatment: the patient's symptoms have markedly improved after treatment. 01/01 15:58 Order name: Basic Metabolic Panel; Complete Time: 18:00 rt 01/01 15:58 Order name: CBC with Diff; Complete Time: 18:00 rt 01/01 15:58 Order name: LFT's; Complete Time: 18:00 rt 01/01 15:58 Order name: Magnesium; Complete Time: 18:00 rt 01/01 15:58 Order name: Troponin HS; Complete Time: 18:00 rt 01/01 15:58 Order name: CPK; Complete Time: 18:00 rt 01/01 15:58 Order name: EKG; Complete Time: 15:58 rt 01/01 15:58 Order name: Cardiac monitoring; Complete Time: 16:15 rt 01/01 15:58 Order name: EKG - Nurse/Tech; Complete Time: 16:15 rt 01/01 15:58 Order name: Labs collected and sent; Complete Time: 16:15 rt 01/01 15:58 Order name: O2 Per Protocol; Complete Time: 15:59 rt 01/01 15:58 Order name: O2 Sat Monitoring; Complete Time: 15:59 rt EC:19 Rate is 66 beats/min. Rhythm is regular, Normal Sinus Rhythm with No ectopy. QRS [place] rt is Normal. NC interval is normal. QT interval is normal. No Q waves. T waves are Normal. No ST changes noted. Interpreted by me. Administered Medications: 16:34 Not Given (Patient Refused): ns 0.9% 2000 ml IV at 2 bolus Per protocol; 1000 mL bolus bp Disposition Summary: 01/02/24 18:06 Discharge Ordered Notes: Location: Home rt Problem: new rt Symptoms: have improved rt Condition: Stable rt Diagnosis - Syncope rt - Dehydration rt Followup: rt - With: Private Physician - When: 2 - 3 days - Reason: Discharge Instructions: - Discharge Summary Sheet rt - Dehydration, Adult rt - Syncope rt Forms: - Medication Reconciliation Form rt - Thank You Letter rt - Antibiotic Education rt - Prescription Opioid Use rt - Patient Portal Instructions rt - Leadership Thank You Letter rt Signatures: Dispatcher [employer] Alejandra Harris, GILLES RN iw Yobany Palma MD MD rt Kwadwo Scales RN bp Corrections: (The following items were deleted from the chart) 16:34 15:58 IV Saline Lock ordered. rt bp
[2024-01-02 18:31] VITALS: BP 108/80; TEMP 98.7; O2SAT 100
== END 2024-01-02 18:21 | disposition home or self-care (01) ==
LOC: ER 15:35
DX: R55 Syncope and collapse (principal); E86.0 Dehydration
CPT/HCPCS: 36415; 80048; 80076; 82550; 83735; 84484; 85025; 93005; 99283; J7030

== ENCOUNTER 2024-05-11 17:46 | Emergency (ER) | payer OTHER ==
--- OUTSIDE RECORDS SUMMARY | 2024-05-11 17:48 | XMS REPORT | Continuity of Care Document ---
Author Name Unknown Address [address] [facility] [address] [place] [address] [facility] thconnect Address [address] [address] [address] [place] [address] Care Team Providers Care Mercerizing Range Controller Name Role Phone Unavailable Unavailable Unavailable Payers Payer Name Policy Type Policy Number Effective Date Expirati on Date Source Allergies, Adverse Reactions, Alerts Allergy Name Allergy Type Status Severity Reaction(s) Onset Date Inactive Date Treating Clinician Comments Source No Known Allergie s DA Active U 05-13 00:00: 00 [facility] Encounters Start Date/Time End Date/Time Encounter Type Admission Type Attending Clinicians Care Facility Care Department Encounter ID Source 2023-06-15 08:38:27 2023-06-15 08:38:27 Outpatient [facility] [id number] Wes Castellanos
--- NOTE | 2024-05-11 19:39 | RAD REPORT ---
EXAM DESCRIPTION: RAD - Ankle Right 3 View - 05/11/2024 7:19 pm CLINICAL HISTORY: Pain;Swelling COMPARISON: No comparisons FINDINGS: Moderate soft tissue is noted laterally. No fracture and dislocation.
--- NOTE | 2024-05-11 19:53 | ER ---
Nurse's Notes [facility] Name: Jesu Le Age: 44 yrs Sex: Male : 1980 Arrival Date: 05/11/2024 Time: 17:46 Bed 11 Private MD: Diagnosis: Sprain of ankle Presentation: 05/11 18:10 Coronavirus screen: Client denies travel out of the [place] in the last 14 days. At this ll1 time, the client does not indicate any symptoms associated with coronavirus-19. Ebola Screen: Patient denies travel to an Ebola-affected area in the 21 days before illness onset. Initial Sepsis Screen: Does the patient meet any 2 criteria? No. Patient's initial sepsis screen is negative. Does the patient have a suspected source of infection? No. Patient's initial sepsis screen is negative. Risk Assessment: Do you want to hurt yourself or someone else? Patient reports no desire to harm self or others. Onset of symptoms was May 11, 2024. 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 Triage Assessment: 18:13 General: Appears uncomfortable, Behavior is calm, cooperative, appropriate for age. ll1 Pain: Complains of pain in R ankle Quality of pain is described as aching. Musculoskeletal: Circulation, motion, and sensation intact. Capillary refill < 3 seconds, Reports pain in right leg. Injury Description: Bruise. Historical: - Allergies: 17:59 No Known Drug Allergies; ll1 - PMHx: 18:09 None; ll1 - PSHx: 17:59 ear tubes; ll1 - Immunization history:: Adult Immunizations up to date. - Infectious Disease History:: Denies. - Social history:: Smoking status: Reported history of juuling and/or vaping. - Family history:: not pertinent. - Hospitalizations: : No recent hospitalization is reported. Screenin:15 [facility] ED Fall Risk Assessment (Adult) History of falling in the last 3 months, jb4 including since admission No falls in past 3 months (0 pts) Confusion or Disorientation No (0 pts) Intoxicated or Sedated No (0 pts) Impaired Gait No (0 pts) Mobility Assist Device Used No (0 pt) Altered Elimination No (0 pt) Score/Fall Risk Level 0 - 2 = Low Risk Oriented to surroundings, Maintained a safe environment. Abuse screen: Denies threats or abuse. Nutritional screening: No deficits noted. Tuberculosis screening: No symptoms or risk factors identified. Assessment: 20:15 Reassessment: Patient appears in no apparent distress at this time. Patient and/or jb4 family updated on plan of care and expected duration. Pain level reassessed. Patient is alert, oriented x 3, equal unlabored respirations, skin warm/dry/pink. Vital Signs: 18:10 BP 116 / 78; Pulse 78; Resp 17; Temp 97.4; Pulse Ox 100% ; Weight 60.33 kg; Height 5 ll1 ft. 11 in. ; Pain 8/10; 18:10 Body Mass Index 18.55 (60.33 kg, 180.34 cm) ll1 18:10 Pain Scale: Adult ll1 ED Course: 17:48 Patient arrived in ED. mr 17:54 Ulisses Matthews MD is Attending Physician. rn 17:59 Arm band placed on. ll1 18:10 Triage completed. ll1 19:21 XRAY Ankle RIGHT 3 view In Process Unspecified. EDMS 20:15 Patient has correct armband on for positive identification. Bed in low position. Call jb4 light in reach. Side rails up X 1. Provided Education on: discharge instructions.. 20:15 No provider procedures requiring assistance completed. Patient did not have IV access jb4 during this emergency room visit. Administered Medications: 20:15 Drug: [place] PO 10 mg-325 mg 1 tabs PO once Route: PO; jb4 20:15 Follow up: Response: Medication administered at discharge. jb4 Medication: 20:15 VIS not applicable for this client. jb4 Outcome: 19:53 Discharge ordered by . rn 20:15 Discharged to home ambulatory, jb4 20:15 Condition: stable 20:15 Discharge instructions given to patient, Instructed on discharge instructions, follow up and referral plans. medication usage, Demonstrated understanding of instructions, follow-up care, medications, Prescriptions given X 1, 20:17 Patient left the ED. jb4 Signatures: Dispatcher [employer] EDPA Thi Schaefer, Reg Reg mr Ulisses Matthews MD MD rn Bryson, James, RN RN jb4 Gasper Mary RN RN ll1 Corrections: (The following items were deleted from the chart) 18:13 18:10 BP 116 / 78; Pulse 78bpm; Resp 17bpm; Pulse Ox 100%; Temp 97.4F; 62.14 kg; Height ll1 5 ft. 11 in.; BMI: 19.1; Pain 8/10, Adult; ll1
--- NOTE | 2024-05-11 19:53 | EDPHYS ---
Physician Documentation [facility] Name: Jesu Le Age: 44 yrs Sex: Male : 1980 Arrival Date: 05/11/2024 Time: 17:46 Bed 11 Private MD: ED Physician Ulisses Matthews HPI: 05/11 18:19 This 44 yrs old Male presents to ER via Wheelchair with complaints of Ankle Injury. rn 18:19 The patient presents with decreased range of motion, an injury, pain. The complaints rn affect the right ankle. Onset: The symptoms/episode began/occurred just prior to arrival. Severity of symptoms: At their worst the symptoms were moderate. The patient has not experienced similar symptoms in the past. Patient reports stepped in a hole, inversion injury to right ankle. Lateral malleolus swelling and pain. No open wounds.. Historical: - Allergies: 17:59 No Known Drug Allergies; ll1 - PMHx: 18:09 None; ll1 - PSHx: 17:59 ear tubes; ll1 - Immunization history:: Adult Immunizations up to date. - Infectious Disease History:: Denies. - Social history:: Smoking status: Reported history of juuling and/or vaping. - Family history:: not pertinent. - Hospitalizations: : No recent hospitalization is reported. ROS: 18:19 MS/Extremity: Positive for right ankle injury and deformity. No open wounds. rn Exam: 18:19 Constitutional: This is a well developed, well nourished patient who is awake, alert, rn appears in pain MS/ Extremity: Pulses equal, no cyanosis. Neurovascular intact. Lateral malleolus swelling with tenderness. No open wound. No discoloration. No proximal tib-fib or knee pain or tenderness Vital Signs: 18:10 BP 116 / 78; Pulse 78; Resp 17; Temp 97.4; Pulse Ox 100% ; Weight 60.33 kg; Height 5 ll1 ft. 11 in. ; Pain 8/10; 18:10 Body Mass Index 18.55 (60.33 kg, 180.34 cm) ll1 18:10 Pain Scale: Adult ll1 MDM: 17:54 Patient medically screened. rn 19:51 Differential diagnosis: fracture, sprain. Data reviewed: vital signs, nurses notes, rn radiologic studies, plain films, and as a result, I will discharge patient. Counseling: I had a detailed discussion with the patient and/or guardian regarding the historical points, exam findings, and any diagnostic results supporting the discharge/admit diagnosis, radiology results, the need for outpatient follow up, to return to the emergency department if symptoms worsen or persist or if there are any questions or concerns that arise at home. Special discussion: I discussed with the patient/guardian in detail that at this point there is no indication for admission to the hospital. It is understood, however, that if the symptoms persist or worsen the patient needs to return immediately for re-evaluation. Based on the history and exam findings, there is no indication for further emergent testing or inpatient evaluation. I discussed with the patient/guardian the need to see the orthopedic surgeon for further evaluation of the symptoms. 05/11 18:19 Order name: XRAY Ankle RIGHT 3 view rn 05/11 19:51 Order name: Walking boot; Complete Time: 20:15 rn Administered Medications: 20:15 Drug: [place] PO 10 mg-325 mg 1 tabs PO once Route: PO; [facility] 20:15 Follow up: Response: Medication administered at discharge. jb4 Disposition Summary: 05/11/24 19:53 Discharge Ordered Notes: Location: Home rn Problem: new rn Symptoms: have improved rn Condition: Stable rn Diagnosis - Sprain of ankle rn Followup: rn - With: Private Physician - When: As needed - Reason: Recheck today's complaints, Re-evaluation by your physician Discharge Instructions: - Discharge Summary Sheet rn - Ankle Sprain rn Forms: - Medication Reconciliation Form rn - Antibiotic lathe turner - Prescription Opioid Use rn - Patient Portal Instructions rn - Leadership Thank You Letter rn Prescriptions: - Tramadol 50 mg Oral Tablet - take 1 tablet ORAL route every 8 hours as needed; 12 tablet; Refills: 0, rn Product Selection Permitted Signatures: Dispatcher [employer] EDMS Ulisses Matthews MD MD rn Bryson, James RN RN jb4 Gasper Mary RN RN ll1 Corrections: (The following items were deleted from the chart) 18:20 18:20 Ankle Right 3 View+[email or web address] ordered. EDMS EDMS
[2024-05-11] MEDS ORDERED: HYDROCODONE/APAP 10/325 TAB ONE (20:03)
[2024-05-11 20:39] VITALS: BP 116/78; TEMP 97.4; O2SAT 100
== END 2024-05-11 20:17 | disposition home or self-care (01) ==
LOC: ER 17:46
DX: S93.401A Sprain of unspecified ligament of right ankle, initial encounter (principal)

== ENCOUNTER 2024-06-15 01:13 | Emergency (ER) | payer OTHER ==
--- OUTSIDE RECORDS SUMMARY | 2024-06-15 01:16 | XMS REPORT | Continuity of Care Document ---
Author Name Unknown Address [address] [facility] [address] [place] [address] [facility] thconnect Address [address] [facility] [address] [place] [address] Care Team Providers Care Senior Java Developer Name Role Phone Unavailable Unavailable Unavailable Payers Payer Name Policy Type Policy Number Effective Date Expirati on Date Source Allergies, Adverse Reactions, Alerts Allergy Name Allergy Type Status Severity Reaction(s) Onset Date Inactive Date Treating Clinician Comments Source No Known Allergie s DA Active U 05-13 00:00: 00 [facility] Encounters Start Date/Time End Date/Time Encounter Type Admission Type Attending Clinicians Care Facility Care Department Encounter ID Source 2023-06-15 08:38:27 2023-06-15 08:38:27 Outpatient [facility] [id number] Wes Castellanos
[2024-06-15] MEDS ORDERED: NA CHLORIDE 0.9% 1,000 ML ONE (01:35)
[2024-06-15] MEDS ORDERED: ONDANSETRON 4 MG/2 ML VIAL ONE (01:51)
[2024-06-15 02:23] LABS: Absolute Eosinophils 0.1 K/uL (0-0.5); Absolute Lymphocytes (CBC) 1.6 K/uL (0.7-4.9); Absolute Monocytes 0.7 K/uL (0.1-1.3); Absolute Neutrophil 6.1 K/uL (1.8-8.0); Basophils % 0.5 % (0-1.3); Eosinophils % 0.8 % (0-4.4); Hemoglobin 13.4 g/dL (13.6-17.9); Lymphocytes % 18.9 % (15.3-44.8); MCH 30.8 pg (27.0-35.0); MCHC 34.4 g/dL (32.0-36.0); MCV 89.4 fL (80-100); MPV 7.1 fL (7.6-11.3); Monocytes % 8.1 % (3.3-12.3); Neutrophils % 71.7 % (41.7-73.7); Platelets 296 thou/uL (152-406); RBC Red Blood Cell Count 4.36 M/uL (4.33-5.43); Red Cell Distribution Width 12.4 % (12.1-15.2)
[2024-06-15 02:32] LABS: Albumin/Globulin Ratio 1.1 (1.1-1.8); Anion Gap 6.2 mEq/L (5.0-15.0); Bilirubin Total 0.4 mg/dL (0.2-1.0); Globulin 3.6 g/dL (2.3-3.5); Potassium 4.2 mEq/L (3.5-5.1); Protein, Total 7.6 g/dL (6.4-8.2)
--- NOTE | 2024-06-15 02:58 | ER ---
Nurse's Notes [facility] Name: Jesu Le Age: 44 yrs Sex: Male : 1980 Arrival Date: 06/15/2024 Time: 01:13 Bed 2 Private MD: Diagnosis: Drug use, mushroom use, nausea Presentation: 06/15 01:15 Chief complaint: Patient states: ate unknown amount of shrooms 4hr CANS VACUUM TESTER. Nausea, lg3 vomiting and weakness. Coronavirus screen: Client denies travel out of the [place] in the last 14 days. At this time, the client does not indicate any symptoms associated with coronavirus-19. Ebola Screen: No symptoms or risks identified at this time. Initial Sepsis Screen: Does the patient meet any 2 criteria? No. Patient's initial sepsis screen is negative. Does the patient have a suspected source of infection? No. Patient's initial sepsis screen is negative. Risk Assessment: Do you want to hurt yourself or someone else? Patient reports no desire to harm self or others. Onset of symptoms was June 15, 2024. 01:15 Method Of Arrival: EMS: [facility] lg3 01:15 Acuity: MALIK 3 lg3 Triage Assessment: 01:17 General: Appears in no apparent distress. comfortable, Behavior is calm, cooperative. lg3 Pain: Denies pain. EENT: No deficits noted. No signs and/or symptoms were reported regarding the EENT system. Neuro: No deficits noted. [place] Agitation-Sedation Scale (RASS): -1 Drowsy Level of Consciousness is awake, alert, obeys commands, Oriented to person, place, time, situation. Cardiovascular: No deficits noted. Denies chest pain, shortness of breath, Capillary refill < 3 seconds Clubbing of nail beds is absent JVD is absent Patient's skin is warm and dry. Respiratory: No deficits noted. Airway is patent Respiratory effort is even, unlabored, Respiratory pattern is regular, symmetrical. GI: No deficits noted. Reports nausea, vomiting. : No deficits noted. No signs and/or symptoms were reported regarding the genitourinary system. Derm: No deficits noted. No signs and/or symptoms reported regarding the dermatologic system. Skin is intact, is healthy with good turgor, Skin is dry, Skin is normal, Skin temperature is warm. Musculoskeletal: No deficits noted. Circulation, motion, and sensation intact. Range of motion: intact in all extremities. Historical: - Allergies: :17 No Known Allergies; lg3 - Home Meds: :17 None [Active]; lg3 - PMHx: :17 None; lg3 - PSHx: :17 ear tubes; lg3 - Immunization history:: Adult Immunizations up to date. - Infectious Disease History:: Denies. - Social history:: Smoking status: Patient denies any tobacco usage or history of. Patient uses street drugs, psilocybin, Patient/guardian denies using alcohol. Screenin:47 [facility] ED Fall Risk Assessment (Adult) History of falling in the last 3 months, bm8 including since admission No falls in past 3 months (0 pts) Confusion or Disorientation Yes (5 pts) Intoxicated or Sedated Yes (3 pts) Impaired Gait Yes (1 pt) Mobility Assist Device Used No (0 pt) Altered Elimination No (0 pt) Score/Fall Risk Level 3 or more points = High Risk Oriented to surroundings, Maintained a safe environment, Educated pt \T\ family on fall prevention, incl call for assistance when getting out of bed, Assessed \T\ reinforced patient's understanding of fall precautions, Hourly rounding (assess needs \T\ fall precautionary measures) done, Used ambulatory aids as needed (educated on \T\ assisted with), Used gait belt as appropriate Implemented a Fall Risk Plan of Care. Abuse screen: Denies threats or abuse. Nutritional screening: No deficits noted. Tuberculosis screening: No symptoms or risk factors identified. Assessment: :47 Reassessment: Patient appears in no apparent distress at this time. Patient and/or bm8 family updated on plan of care and expected duration. Pain level reassessed. Patient is alert, oriented x 3, equal unlabored respirations, skin warm/dry/pink. General: Appears in no apparent distress. comfortable, Behavior is calm, cooperative, appropriate for age. Pain: Complains of pain in abdomen Pain currently is 5 out of 10 on a pain scale. Neuro: Level of Consciousness is awake, alert, obeys commands, Oriented to person, place, time, situation, Appropriate for age. Cardiovascular: Denies chest pain, Capillary refill < 3 seconds Patient's skin is warm and dry. Respiratory: Airway is patent Trachea midline Respiratory effort is even, unlabored, Respiratory pattern is regular, symmetrical, Breath sounds are clear bilaterally. GI: Abdomen is flat, non-distended, Bowel sounds present X 4 quads. Abd is soft and non tender Reports lower abdominal pain, upper abdominal pain, nausea. : No signs and/or symptoms were reported regarding the genitourinary system. EENT: No signs and/or symptoms were reported regarding the EENT system. Derm: No signs and/or symptoms reported regarding the dermatologic system. Musculoskeletal: No signs and/or symptoms reported regarding the musculoskeletal system. 03:18 Reassessment: Patient appears in no apparent distress at this time. Patient and/or kj2 family updated on plan of care and expected duration. Pain level reassessed. Patient is alert, oriented x 3, equal unlabored respirations, skin warm/dry/pink. Vital Signs: 01:15 BP 114 / 70; Pulse 85; Resp 17 S; Pulse Ox 97% on R/A; Weight 62.14 kg (R); Height 5 lg3 ft. 11 in. (R); 01:47 BP 102 / 54; Pulse 82; Resp 13; Temp 98.1; Pulse Ox 100% ; Weight 62.14 kg; Height 5 bm8 ft. 11 in. ; Pain 5/10; 03:18 BP 108 / 68; Pulse 79; Resp 18; Temp 98.2; Pulse Ox 100% on R/A; kj2 01:47 Body Mass Index 19.11 (62.14 kg, 180.34 cm) bm8 01:47 Pain Scale: Adult bm8 [place] Coma Score: 01:47 Eye Response: spontaneous(4). Motor Response: obeys commands(6). Verbal Response: bm8 oriented(5). Total: 15. ED Course: 01:14 Patient arrived in ED. lg3 01:15 Estrella Casey MD is Attending Physician. sp3 01:15 Provided Education on: call light. kj2 01:17 Triage completed. lg3 01:17 Arm band placed on right wrist. lg3 01:31 Cherie Bonds, GILLES is Primary Nurse. kj2 01:47 Patient has correct armband on for positive identification. Placed in gown. Bed in low bm8 position. Call light in reach. Side rails up X2. Client placed on continuous cardiac and pulse oximetry monitoring. NIBP monitoring applied. truck driver helper on. Pulse ox on. NIBP on. Door closed. Noise minimized. Warm blanket given. Pillow given. Verbal reassurance given. Head of bed lowered. 01:47 No provider procedures requiring assistance completed. Patient maintains SpO2 bm8 saturation greater than 95% on room air. 02:00 Lactate w/ 2H reflex if indic. Sent. kj2 02:00 CBC with Diff Sent. kj2 02:00 CMP Sent. kj2 02:00 Lipase Sent. kj2 03:20 IV discontinued, intact, bleeding controlled, No redness/swelling at site. Pressure kj2 dressing applied. Administered Medications: 02:00 Drug: NS 0.9% IV 1000 ml IV at 1 bolus Per protocol; 1000 mL bolus Route: IV; Rate: 1 kj2 bolus; Site: left antecubital; 03:19 Follow up: IV Status: Completed infusion; IV Intake: 1000ml kj2 02:01 Drug: Ondansetron IVP 4 mg IVP once; over 2 minutes Route: IVP; Site: left antecubital; kj2 03:19 Follow up: Response: No adverse reaction; Vomiting decreased kj2 Medication: 01:47 VIS not applicable for this client. bm8 Intake: 03:19 IV: 1000ml; Total: 1000ml. kj2 Outcome: 02:57 Discharge ordered by MD. musa3 03:20 Discharged to home ambulatory, kj2 03:20 Condition: stable 03:20 Discharge instructions given to patient, Instructed on discharge instructions, follow up and referral plans. Demonstrated understanding of instructions, follow-up care, 03:30 Patient left the ED. kj2 Signatures: Lisandra Archuleta RN RN lg3 Estrella Casey MD MD sp3 Suhas Cortes RN RN bm8 Cherie Bonds, GILLES RN kj2
--- NOTE | 2024-06-15 02:58 | EDPHYS ---
Physician Documentation [facility] Name: Jesu Le Age: 44 yrs Sex: Male : 1980 Arrival Date: 06/15/2024 Time: 01:13 Bed 2 Private MD: ED Physician Estrella Casey HPI: 06/15 01:43 This 44 yrs old Male presents to ER via EMS with complaints of nausea. sp3 01:43 44-year-old male with no past medical history presents with chief complaint nausea and sp3 mild dizziness approxi-1 hour after taking mushrooms like candy bar given to him by a friend. He denies any other symptoms or other ingested agents. Review of systems negative for headache, neck pain, fever, URI symptoms, chest pain, shortness of breath, abdominal pain, rash, syncope, near syncope, or any other signs or symptoms on ROS at this time.. Historical: - Allergies: 01:17 No Known Allergies; lg3 - Home Meds: 01:17 None [Active]; lg3 - PMHx: 01:17 None; lg3 - PSHx: 01:17 ear tubes; lg3 - Immunization history:: Adult Immunizations up to date. - Infectious Disease History:: Denies. - Social history:: Smoking status: Patient denies any tobacco usage or history of. Patient uses street drugs, psilocybin, Patient/guardian denies using alcohol. ROS: 01:44 Constitutional: Negative for fever, chills, and weight loss, Eyes: Negative for injury, sp3 pain, redness, and discharge, Neck: Negative for injury, pain, and swelling, Cardiovascular: Negative for chest pain, palpitations, and edema, Respiratory: Negative for shortness of breath, cough, wheezing, and pleuritic chest pain, Back: Negative for injury and pain, MS/Extremity: Negative for injury and deformity, Skin: Negative for injury, rash, and discoloration, Neuro: Negative for headache, weakness, numbness, tingling, and seizure, Psych: Negative for depression, anxiety, suicide ideation, homicidal ideation, and hallucinations, Allergy/Immunology: Negative for hives, rash, and allergies, Endocrine: Negative for neck swelling, polydipsia, polyuria, polyphagia, and marked weight changes, Hematologic/Lymphatic: Negative for swollen nodes, abnormal bleeding, and unusual bruising, 01:44 All other systems are negative, Exam: 01:44 Constitutional: This is a well developed, well nourished patient who is awake, alert, sp3 and in no acute distress. Head/Face: Normocephalic, atraumatic. Eyes: Pupils equal round and reactive to light, extra-ocular motions intact. Lids and lashes normal. Conjunctiva and sclera are non-icteric and not injected. Cornea within normal limits. Periorbital areas with no swelling, redness, or edema. ENT: Nares patent. No nasal discharge, no septal abnormalities noted. External auditory canals are clear. Oropharynx with no redness, swelling, or masses, exudates, or evidence of obstruction, uvula midline. Mucous membranes moist. Neck: Trachea midline, no thyromegaly or masses palpated, and no cervical lymphadenopathy. Supple, full range of motion without nuchal rigidity, or vertebral point tenderness. No Meningismus. Chest/axilla: Normal chest wall appearance and motion. Nontender with no deformity. No lesions are appreciated. Cardiovascular: Regular rate and rhythm with a normal S1 and S2. No gallops, murmurs, or rubs. Normal PMI, no JVD. No pulse deficits. Respiratory: Lungs have equal breath sounds bilaterally, clear to auscultation and percussion. No rales, rhonchi or wheezes noted. No increased work of breathing, no retractions or nasal flaring. Abdomen/GI: Soft, non-tender, with normal bowel sounds. No distension or tympany. No guarding or rebound. No evidence of tenderness throughout. Back: No spinal tenderness. No costovertebral tenderness. Full range of motion. Skin: Warm, dry with normal turgor. Normal color with no rashes, no lesions, and no evidence of cellulitis. MS/ Extremity: Pulses equal, no cyanosis. Neurovascular intact. Full, normal range of motion. Neuro: Awake and alert, GCS 15, oriented to person, place, time, and situation. Cranial nerves II-XII grossly intact. Motor strength 5/5 in all extremities. Sensory grossly intact. Cerebellar exam normal. Normal gait. Psych: Awake, alert, with orientation to person, place and time. Behavior, mood, and affect are within normal limits. Vital Signs: 01:15 BP 114 / 70; Pulse 85; Resp 17 S; Pulse Ox 97% on R/A; Weight 62.14 kg (R); Height 5 lg3 ft. 11 in. (R); 01:47 BP 102 / 54; Pulse 82; Resp 13; Temp 98.1; Pulse Ox 100% ; Weight 62.14 kg; Height 5 bm8 ft. 11 in. ; Pain 5/10; 03:18 BP 108 / 68; Pulse 79; Resp 18; Temp 98.2; Pulse Ox 100% on R/A; kj2 01:47 Body Mass Index 19.11 (62.14 kg, 180.34 cm) bm8 01:47 Pain Scale: Adult bm8 [place] Coma Score: 01:47 Eye Response: spontaneous(4). Motor Response: obeys commands(6). Verbal Response: bm8 oriented(5). Total: 15. MDM: 01:23 Patient medically screened. sp3 01:44 Data reviewed: vital signs, nurses notes, lab test result(s). ED course: 44-year-old sp3 male with no past medical history presents after mushroom ingestion with feelings of nausea. This is likely the culprit of his symptoms. I am not highly suspicious for sepsis, shock, surgical pathology, gastroenteritis, or any other critical process including ACS. Will obtain general labs and administer IV fluids and IV Zofran. Disposition pending workup and patient course. EKG also pending.. 02:57 ED course: Patient feeling better with continues to have normal vital signs. UDS not sp3 obtained however will not contribute to his care. We will safely discharge patient home at this time.. 06/15 01:25 Order name: CBC with Diff; Complete Time: 02:29 sp3 06/15 01:25 Order name: CMP; Complete Time: 02:43 sp3 06/15 01:25 Order name: Lipase; Complete Time: 02:43 sp3 06/15 01:25 Order name: Lactate w/ 2H reflex if indic. sp3 06/15 01:25 Order name: IV Saline Lock; Complete Time: 02:00 sp3 06/15 01:25 Order name: Labs collected and sent; Complete Time: 02:00 sp3 06/15 01:45 Order name: EKG - Nurse/Tech sp3 Administered Medications: 02:00 Drug: NS 0.9% IV 1000 ml IV at 1 bolus Per protocol; 1000 mL bolus Route: IV; Rate: 1 kj2 bolus; Site: left antecubital; 03:19 Follow up: IV Status: Completed infusion; IV Intake: 1000ml kj2 02:01 Drug: Ondansetron IVP 4 mg IVP once; over 2 minutes Route: IVP; Site: left antecubital; kj2 03:19 Follow up: Response: No adverse reaction; Vomiting decreased kj2 Disposition Summary: 06/15/24 02:57 Discharge Ordered Notes: Location: Home sp3 Condition: Stable sp3 Diagnosis - Drug use, mushroom use, nausea sp3 Followup: sp3 - With: Private Physician - When: Upon discharge from the Emergency Department - Reason: Recheck today's complaints, Continuance of care Discharge Instructions: - Discharge Summary Sheet sp3 - Illegal Drug Use Information, Adult sp3 Forms: - Medication Reconciliation Form sp3 - Antibiotic Education sp3 - Prescription Opioid Use sp3 - Patient Portal Instructions sp3 - Leadership Thank You Letter sp3 Signatures: Dispatcher [employer] Lisandra Peña RN RN lg3 Estrella Casey MD MD sp3 Cherie Bonds RN RN kj2
[2024-06-15 18:55] VITALS: O2SAT 100
[2024-06-15 18:57] VITALS: BP 108/68; TEMP 98.2
== END 2024-06-15 03:30 | disposition home or self-care (01) ==
LOC: ER 01:13
DX: T62.0X4A Toxic effect of ingested mushrooms, undetermined, initial encounter (principal); R11.0 Nausea; R42 Dizziness and giddiness
CPT/HCPCS: 96361; 85025; 36415; 83605; 83690; 80053; 96374; 99285; J2405; J7030